=== PATIENT | female | born 1950 | race American Indian/Alaskan Native ===

== ENCOUNTER 2016-12-03 08:02 | Day surgery (SDC) | payer MEDICAID ==
[2016-12-03] MEDS ORDERED: Propofol 10 mg/ml Inj (20 ML) ONE (10:18)
[2016-12-03] MEDS ORDERED: Lactated Ringer's 500 ML IV ONE ×2 (10:37)
[2016-12-03 11:35] VITALS: TEMP 98.7; O2SAT 100
[2016-12-03 13:29] VITALS: BP 153/67; PULSE 66; RESP 14
== END 2016-12-03 13:00 | disposition home or self-care (01) ==
LOC: C.ENDO 08:02
PROVIDERS: ATTEND Internal Medicine Gastroenterology
DX: Z12.11 Encounter for screening for malignant neoplasm of colon (principal); D12.3 Benign neoplasm of transverse colon; K64.0 First degree hemorrhoids; F17.210 Nicotine dependence, cigarettes, uncomplicated
CPT/HCPCS: 45378; 82948; 88305; J2704; J7120

== ENCOUNTER 2017-11-25 10:28 | Inpatient (IN) | payer MEDICARE, MEDICAID ==
[2017-11-25] MEDS ORDERED: Piperacillin/Tazobact 3.375 gm 100 ML IV STA (11:18)
--- NOTE | 2017-11-25 11:25 | C.PDOC ---
History Of Present Illness 67 y/o female with history of HTN and DM presents to ED sent by Dr. Kc for evaluation and possible medical admission for Osteomyelitis on right foot. Patient has been on outpatient antibiotics with no improvement and denies fever , chills, numbness to foot, weakness or any other complaints at this time. Time Seen by Provider: 11/25/17 10:56 Chief Complaint (Nursing): Lower Extremity Problem/Injury History Per: Patient History/Exam Limitations: no limitations Onset/Duration Of Symptoms: Days Current Symptoms Are (Timing): Still Present Severity: Mild Past Medical History Reviewed: Historical Data, Nursing Documentation, Vital Signs Vital Signs: Last Vital Signs Temp 98.2 F 11/25/17 10:47 Pulse 60 11/25/17 12:43 Resp 22 11/25/17 12:43 BP 138/67 11/25/17 12:43 Pulse Ox 99 11/25/17 12:43 - Medical History PMH: Anxiety, Asthma, Depression, Hypercholesterolemia, Rheumatoid Arthritis Surgical History: Cholecystectomy, Endoscopy Family History: States: No Known Family Hx - Social History Hx Alcohol Use: No Hx Substance Use: No Review Of Systems Constitutional: Negative for: Fever, Chills Cardiovascular: Negative for: Chest Pain Respiratory: Negative for: Shortness of Breath Skin: Positive for: Other (infection right foot). Negative for: Rash Neurological: Negative for: Weakness, Numbness Physical Exam - Physical Exam Appears: Non-toxic, No Acute Distress Skin: Warm, Dry Head: Atraumatic, Normacephalic Eye(s): bilateral: Normal Inspection Oral Mucosa: Moist Cardiovascular: Rhythm Regular Respiratory: Normal Breath Sounds, No Rales, No Rhonchi, No Wheezing Gastrointestinal/Abdominal: Soft, No Tenderness, No Guarding, No Rebound Extremity: No Pedal Edema, Capillary Refill (<2 seconds), Other (right foot dressing in place) Pulses: Right Dorsalis Pedis: Normal Neurological/Psych: Oriented x3, Normal Speech, Normal Cognition, Normal Motor, Normal Sensation Gait: With Assistance ED Course And Treatment - Laboratory Results Result Diagrams: 11/25/17 11:34 11/25/17 11:34 O2 Sat by Pulse Oximetry: 97 (RA) Pulse Ox Interpretation: Normal Progress Note: Case discussed with Podiatry resident and request admission. Treated with IVF NSS, vancomycin and zosyn Reassessment Condition: Unchanged - Physician Consult Information Physician Contacted: Jeferson Puri Outcome Of Conversation: admit Disposition Discussed With : Jeferson Puri Doctor Will See Patient In The: Hospital - Disposition Disposition: HOSPITALIZED Disposition Time: 14:00 Condition: STABLE - POA Present On Arrival: None - Clinical Impression Clinical Impression: Acute osteomyelitis - PA / NIPPLE THREADER / Resident Statement MD/DO has reviewed & agrees with the documentation as recorded. - Scribe Statement The provider has reviewed the documentation as recorded by the Scribe Lizandro Friedman All medical record entries made by the Carmencitaibpalak were at my direction and personally dictated by me. I have reviewed the chart and agree that the record accurately reflects my personal performance of the history, physical exam, medical decision making, and the department course for this patient. I have also personally directed, reviewed, and agree with the discharge instructions and disposition. Decision To Admit - Pt Status Changed To: Hospital Disposition Of: Inpatient - Admit Certification Admit to Inpatient:: After my assessment, the patient will require hospitalization for at least two midnights. This is because of the severity of symptoms shown, intensity of services needed, and/or the medical risk in this patient being treated as an outpatient. - InPatient: Physician Admission Certification: I certify that this patient requires 2 or more midnights of care for the following reason:: Diabetic foot. cellulitis. Osteomylitis - . Bed Request Type: Regular Admitting Physician: Jeferson Puri Patient Diagnosis: Acute osteomyelitis
[2017-11-25] MEDS ORDERED: Vancomycin 1 GM 1 GM/250 ML BAG IV SCH (11:30)
[2017-11-25 11:39] LABS: BASO # 0.1 K/uL (0.0-0.2); BASO % 1.2 % (0.0-2.0); EOS # 0.2 K/uL (0.0-0.7); EOS % 3.8 % (0.0-4.0); HEMOGLOBIN 11.9 g/dL (11.0-16.0); LYMPH # 2.2 K/uL (1.0-4.3); LYMPH % 38.6 % (20.0-40.0); MEAN CELL VOLUME 83.3 fL (81.0-99.0); MEAN CORPUSCULAR HGB CONC 33.6 g/dL (33.0-37.0); MEAN PLATELET VOLUME 8.7 fL (7.2-11.7); MONO # 0.7 K/uL (0.0-0.8); MONO % 11.7 % (0.0-10.0); NEUT # 2.5 K/uL (1.8-7.0); NEUT % 44.7 % (50.0-75.0); NRBC % 0.2 % (0.0-2.0); RBC 4.26 Mil/uL (3.80-5.20); RED CELL DISTRIBUTION WIDTH 14.6 % (11.5-14.5); WHITE BLOOD COUNT 5.6 K/uL (4.8-10.8)
[2017-11-25 11:53] LABS: ALB/GLOB RATIO 1.2 (1.0-2.1); ALBUMIN 3.7 g/dL (3.5-5.0); ALT/SGPT 28 U/L (9-52); AST/SGOT 20 U/L (14-36); BLOOD UREA NITROGEN 15 mg/dL (7-17); CALCIUM 9.4 mg/dl (8.6-10.4); GFR NON-AFRICAN AMERICAN > 60
[2017-11-25] MEDS ORDERED: Piperacillin/Tazobact 3.375 gm 100 ML IVPB ONE (12:22)
--- NOTE | 2017-11-25 12:22 | CP.PCM.CON ---
History of Present Illness - History of Present Illness History of Present Illness: Podiatry Consult Note- Dr. Abbott 67 y.o F with PMHx of DM, HTN, and asthma seen and evaluated at bedside for right foot ulcerations with osteomyelitis. Patient was seen by Dr. Abbott in office with worsening drainage Thursday and was instructed to go to the ED for further evaluation. Patient reports she has had the ulceration at the forefoot since June 2017 from a nail puncture wound that went through her shoe and into her foot. Patient reports that she is a diabetic and can not feel sensation. Did not know when she stepped on the nail. The nail was removed and cleansed. The ulceration never closed up and has neil going to Dr. Abbott for continued care. Patient reports in the last few days there is increase drainage to the site. Reports has taken antibiotics. Does not know if the abx is helping. Reports mild pain to the right foot. Patient also reports that 2 weeks ago she stepped on a glass at the heel which was removed and cleansed. Reports that the ulceration appears the same. Denies any nausea, fever, shortness of breath, chest pains or chills. Reports numbness and tingling. 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, denies drinking alcohol Past Patient History - Past Medical History & Family History Past Medical History?: Yes - Past Social History Smoking Status: Current Some Days Smoker - CARDIAC Hx Hypercholesterolemia: Yes - PULMONARY Hx Asthma: Yes - HEENT Hx HEENT Problems: No - RENAL Hx Chronic Kidney Disease: No - ENDOCRINE/METABOLIC Hx Endocrine Disorders: Yes Hx Diabetes Mellitus Type 2: Yes - HEMATOLOGICAL/ONCOLOGICAL Hx Blood Disorders: No - INTEGUMENTARY Hx Dermatological Problems: No - MUSCULOSKELETAL/RHEUMATOLOGICAL Hx Rheumatoid Arthritis: Yes - GENITOURINARY/GYNECOLOGICAL Hx Genitourinary Disorders: No - PSYCHIATRIC Hx Anxiety: Yes Hx Depression: Yes Hx Substance Use: No - SURGICAL HISTORY Hx Cholecystectomy: Yes - ANESTHESIA Hx Anesthesia: Yes Hx Anesthesia Reactions: No Hx Malignant Hyperthermia: No Meds Allergies/Adverse Reactions: Allergies Allergy/AdvReac Type Severity Reaction Status Date / Time No Known Allergies Allergy Verified 12/03/16 08:43 - Medications Medications: Current Medications Vancomycin HCl (Vancomycin 1gm In Normal Saline Addvantage) 1 gm in 250 mls @ 166.667 mls/hr IV STAT ADAN PRN Reason: Protocol Physical Exam - Constitutional Appears: Well, Non-toxic, No Acute Distress - Extremities Exam Extremities exam: Negative for: calf tenderness Additional comments: VASC: DP 1/4 bilaterally, PT nonpalpable, CFT slightly delayed x 10 digits, temperature gradient right lower extremity is warm to warm, left lower extremity is warm to cool ORTHO: no pain with palpation the the ulceration sites NEURO: gross sensation diminished, protective sensation completely absent DERM: two ulcerations noted to the right foot, at sub metatarsal 1 and posterior heel Sub metatarsal 1 ulceration measures approximately . 6 x .6 x .2 cm with margins intact and hyperkeratotic, mild drainage noted, mild erythema, no streaking, undermining noted entire peripheral, no tunneling, no abscess or fluctance Posterior heel ulceration measures approximately 1 cm x .5 cm x .2 cm with wound base mixture of granular and fibroic. Wound edges intact, mild drainage, no erythema, no streaking, no undermining, no tunneling, no abscess or fluctance , no odor Increase warmth to the right foot compared to the left - Psychiatric Exam Psychiatric exam: Normal Affect, Normal Mood Results - Vital Signs Recent Vital Signs: Last Vital Signs Temp 98.2 F 11/25/17 10:47 Pulse 80 11/25/17 10:47 Resp 18 11/25/17 10:47 BP 138/79 11/25/17 10:47 Pulse Ox 97 11/25/17 12:03 - Labs Result Diagrams: 11/25/17 11:34 11/25/17 11:34 Labs: Laboratory Results - last 24 hr 11/25/17 11/25/17 11/25/17 11:34 11:34 11:34 WBC 5.6 RBC 4.26 Hgb 11.9 Hct 35.5 MCV 83.3 MCH 28.0 MCHC 33.6 RDW 14.6 H Plt Count 240 MPV 8.7 Neut % (Auto) 44.7 L Lymph % (Auto) 38.6 [place] % (Auto) 11.7 H Eos % (Auto) 3.8 Baso % (Auto) 1.2 Neut # (Auto) 2.5 Lymph # (Auto) 2.2 [place] # (Auto) 0.7 Eos # (Auto) 0.2 Baso # (Auto) 0.1 Sodium 142 Potassium 3.7 Chloride 103 Carbon Dioxide 30 Anion Gap 13 BUN 15 Creatinine 0.9 Est GFR ( Amer) > 60 Est GFR (Non-Af Amer) > 60 Random Glucose 204 H Lactic Acid 1.4 Calcium 9.4 Total Bilirubin 0.4 AST 20 ALT 28 Alkaline Phosphatase 154 H Total Protein 6.9 Albumin 3.7 Globulin 3.2 Albumin/Globulin Ratio 1.2 Assessment & Plan - Assessment and Plan (Free Text) Assessment: 67 y.o F with PMHx of DM, HTN, and asthma with nonhealing ulceration right foot with OM Plan: Patient seen and evaluated Discussed plan with Dr. Abbott X-rays reviewed Clinical OM of right foot Dr. Abbott plans to bring the patient to the OR for a debridement of nonviable soft tissue and possible resection of bone for 10am pending medical clearance Please keep patient NPO after midnight today pending medical clearance Please provide medical clearance- thank you Cleansed ulceration with saline solution Wound culture taken sub met 1 right foot-pending Wound culture taken plantar heel right foot- pending Dressed with hydrogen peroxide w2d, dsd, and kerlix
[2017-11-25 12:44] LABS: URINE BILIRUBIN NEGATIVE (NEGATIVE); URINE BLOOD NEGATIVE (NEGATIVE); URINE CLARITY Clear (Clear); URINE COLOR YELLOW (YELLOW); URINE GLUCOSE (UA) NEGATIVE (Normal); URINE LEUKOCYTE ESTERASE NEGATIVE Leu/uL (Negative); URINE PROTEIN NEGATIVE (NEGATIVE); URINE UROBILINOGEN 0.2 mg/dL (0.2-1.0)
[2017-11-25] MEDS ORDERED: Albuterol HFA 90 mcg/actuation (8 g) IH PRN (14:04)
--- NOTE | 2017-11-25 14:14 | CP.PCM.PN ---
Subjective - Date & Time of Evaluation Date of Evaluation: 11/25/17 Time of Evaluation: 14:14 - Subjective Subjective: PGY2 Medicine Note for Dr. Puri Patient is a 67 year old female with a past medical history of DM, HTN and asthma was sent to the hospital by her Law Writer, Dr. Abbott, due to non- healing osteomyelitis of the right foot. Patient has been follow up with Dr. Abbott since June 2017 after she stepped on a nail. She was diagnosed with osteomyelitis and attempted treatment twice with abx regiments for 6 weeks. The wounds are not healing and patient is being admitted for further evaluation and treatment. She has mild pain in the right foot at this time. She has no other complaints at this time. Patient has baseline neuropathy in both legs due to her history of long standing diabetes. Denies fevers, chills, nausea, vomiting, diarrhea, constipation, chest pain, shortness of breath, abdominal pain, vision changes or headaches. PMH: DM, HTN and asthma PSH: right foot bunionectomy, 2nd digit surgery, 2 knee replacements, partial hysterectomy ALL: NKDA Family: mother and father: DM, HTN Social: reports daily heroin user (3 bags per days), 5 cigarettes per day for 42 years, denies drinking alcohol Objective - Vital Signs/Intake and Output Vital Signs (last 24 hours): Temp Pulse Resp BP Pulse Ox 98.2 F 60 22 138/67 99 11/25/17 10:47 11/25/17 12:43 11/25/17 12:43 11/25/17 12:43 11/25/17 12:43 - Medications Medications: Current Medications Albuterol (Ventolin Hfa 90 Mcg/Actuation (8 G)) 1 puff IH Q4H PRN PRN Reason: Wheezing Gabapentin (Neurontin) 300 mg PO TID ADAN Glipizide (Glucotrol) 5 mg PO DAILY ADAN Vancomycin HCl (Vancomycin 1gm In Normal Saline Addvantage) 1 gm in 250 mls @ 166.667 mls/hr IV STAT ADAN PRN Reason: Protocol Insulin Detemir (Levemir) 15 unit SC HS ADAN Lisinopril (Zestril) 20 mg PO DAILY ADAN Fluticasone/Salmeterol (Advair Diskus 250/50) 1 puff INH Q12H ADAN - Labs Labs: 11/25/17 11:34 11/25/17 11:34 - Constitutional Appears: Chronically Ill, Other (obese) - Head Exam Head Exam: ATRAUMATIC, NORMOCEPHALIC - Eye Exam Eye Exam: EOMI, Normal appearance, PERRL. absent: Scleral icterus - ENT Exam ENT Exam: Mucous Membranes Moist - Neck Exam Neck Exam: absent: Lymphadenopathy - Respiratory Exam Respiratory Exam: Clear to Ausculation Bilateral, NORMAL BREATHING PATTERN. absent: Accessory Muscle Use, Rales, Rhonchi, Wheezes, Respiratory Distress - Cardiovascular Exam Cardiovascular Exam: REGULAR RHYTHM, +S1 - GI/Abdominal Exam GI & Abdominal Exam: Soft. absent: Distended, Firm, Guarding, Rigid, Tenderness - Extremities Exam Extremities Exam: Pedal Edema (3+ pitting above knee b/l). absent: Calf Tenderness, Normal Inspection Additional comments: ankles wrapped b/l chronic skin changes b/l - dark, dusky skin appearance - Neurological Exam Neurological Exam: Alert, Awake, Oriented x3 - Psychiatric Exam Psychiatric exam: Normal Affect, Normal Mood - Skin Skin Exam: Dry, Warm Assessment and Plan - Assessment and Plan (Free Text) Plan: R foot Osteomyelitis Podiatry consulted, Dr. Abbott * patient scheduled for OR in the morning * Patient is medically optimized for surgery per Dr. Puri CXR 11/25: no acute disease Foot X-ray 11/25: * No plain radiographic evidence of osteomyelitis. 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 * Soft tissue swelling about 1st metatarsal phalangeal joint. * Consider inflammatory, gouty or infectious arthritis. afebrile normal WBC Lactic Acid 1.4 UA normal ED course: 1 dose of Vanco 1gm and Zosyn 3.375gm IVPB given. Diabetes Accuchecks ISS - High Restarted home medications: * Levemir 15 units SC HS * Glipizide 5mg PO daily * Gabapentin 300mg PO TID Hypertension continue to monitor Restarted home medications: * Lisinopril 20mg PO daily Hx of Asthma Restarted home medications: * Advair Diskus 250/50 1puff INH q12h * Albuterol 1 puff INH q4h prn - SOB Prophylactic Care DVT: AC contraindicated due to pre-op SCDs contraindicated due to LE edema Patient has been medically optimized for surgery per Dr. Puri by previous work -up. All medical management per Dr. Puri.
[2017-11-25] MEDS ORDERED: Fluticasone-Salmeterol 250-50mcg Diskus INH SCH (14:15)
--- NOTE | 2017-11-25 14:47 | RAD ---
Date of service: 11/25/2017 PROCEDURE: Right Foot Radiographs. HISTORY: cellulitis COMPARISON: None. FINDINGS: BONES: No acute fracture. 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 Severe arthritis at the 1st metatarsal phalangeal articulation with large osseous erosions. Differential diagnosis includes infectious arthritis, inflammatory arthritis, gouty arthritis. Remaining joint spaces and articular surfaces are intact. No periosteal reaction. JOINTS: As above SOFT TISSUES: Soft tissue swelling seen about the 1st digit. OTHER FINDINGS: None. IMPRESSION: No plain radiographic evidence of osteomyelitis. The erosive arthritis of 1st metatarsophalangeal joint. Soft tissue swelling about 1st metatarsal phalangeal joint. Consider inflammatory, gouty or infectious arthritis.
[2017-11-25] MEDS ORDERED: Dextrose 50% SYRINGE Inj (50 ml) IV PRN (17:09)
[2017-11-25] MEDS ORDERED: Glucagon Recombinant 1 mg Inj IM PRN (17:09)
[2017-11-25] MEDS: (Novolin R) Insulin Human Regular 100 units/ml vial SC SCH (21:48)
[2017-11-25] MEDS: Insulin Detemir 100 units/ml Vial (Levemir) SC SCH (21:49)
--- NOTE | 2017-11-26 06:40 | HP ---
Copied To: Jeferson Puri MD Attending MD: Jeferson Puri MD HISTORY OF PRESENT ILLNESS: This is a 67-year-old female with history of diabetes, hypertension, diabetic foot infection. Chief complaint pain and swelling in the right foot. The patient is followed by a gang drill operator at a different hospital. PHYSICAL EXAMINATION GENERAL: The patient is awake, alert, and oriented. VITAL SIGNS: Temperature 98, pulse 90. HEENT: Within normal limits. NECK: Supple. LUNGS: Symmetrical. HEART: Regular. ABDOMEN: Soft. EXTREMITIES: dressing extremity. IMPRESSION AND PLAN: The patient suffers from diabetic foot, also has osteomyelitis. The patient to get intravenous antibiotics, Infectious Disease consult. Jeferson Puri MD
[2017-11-26] MEDS: (Novolin R) Insulin Human Regular 100 units/ml vial SC SCH ×4 (08:00→21:41)
[2017-11-26 08:17] LABS: BASO # 0.1 K/uL (0.0-0.2); BASO % 0.9 % (0.0-2.0); EOS # 0.2 K/uL (0.0-0.7); EOS % 3.3 % (0.0-4.0); LYMPH # 2.3 K/uL (1.0-4.3); LYMPH % 40.3 % (20.0-40.0); MEAN CELL VOLUME 82.8 fL (81.0-99.0); MEAN CORPUSCULAR HEMOGLOBIN 27.8 pg (27.0-31.0); MEAN CORPUSCULAR HGB CONC 33.5 g/dL (33.0-37.0); MEAN PLATELET VOLUME 8.5 fL (7.2-11.7); MONO # 0.6 K/uL (0.0-0.8); MONO % 11.1 % (0.0-10.0); NEUT # 2.5 K/uL (1.8-7.0); NEUT % 44.4 % (50.0-75.0); NRBC % 0.1 % (0.0-2.0); RBC 3.98 Mil/uL (3.80-5.20); RED CELL DISTRIBUTION WIDTH 14.3 % (11.5-14.5); WHITE BLOOD COUNT 5.6 K/uL (4.8-10.8)
[2017-11-26 08:29] LABS: ALB/GLOB RATIO 1.1 (1.0-2.1); ALBUMIN 3.2 g/dL (3.5-5.0); ALT/SGPT 29 U/L (9-52); AST/SGOT 28 U/L (14-36); BLOOD UREA NITROGEN 19 mg/dL (7-17); CALCIUM 8.8 mg/dl (8.6-10.4); GFR NON-AFRICAN AMERICAN > 60
[2017-11-26] MEDS ORDERED: Bupivacaine 0.25% 20 ML INJ IJ ONE (09:33)
[2017-11-26] MEDS ORDERED: Lidocaine 2% MPF (5 ml) Inj ONE (09:33)
[2017-11-26] MEDS ORDERED: Propofol 10 mg/ml Inj (20 ML) ONE ×3 (09:53→10:44)
[2017-11-26] MEDS ORDERED: Midazolam 2 MG/2 ML VIAL ONE (09:53)
[2017-11-26] MEDS: Fluticasone-Salmeterol 250-50mcg Diskus INH SCH ×2 (10:19→19:26)
[2017-11-26] MEDS ORDERED: Lactated Ringer's 1,000 ML IV ONE (11:12)
[2017-11-26] MEDS: HYDROmorphone 0.5 mg/0.5 ml ISec IVP PRN ×2 (11:16→12:10)
--- NOTE | 2017-11-26 11:52 | PCM.SURG1 ---
Surgeon's Initial Post Op Note - Surgeon's Notes Surgeon: Dr. San Physician Non Invasive Cardiologist: Dr. Gabriella Marshall, PGY1, Dr. Bear Chauhan PGY1 Type of Anesthesia: IV Sedation, Local Pre-Operative Diagnosis: Chronic osteomyelitis of right first ray Operative Findings: See dictation. I: 20 cc of 1:1 mix of 1% lidocaine plain and 0.5% marcaine plain. M: 2-0 chromic gut, 1/4 iodoform packing, 1/4 umm drain Post-Operative Diagnosis: same Operation Performed: Radical excision of nonviable bone and soft tissue from right foot Specimen/Specimens Removed: non-viable bone and soft tissue Estimated Blood Loss: EBL {In ML}: 40 Blood Products Given: N/A Drains Used: Umm Post-Op Condition: Good Date of Surgery/Procedure: 11/26/17 Time of Surgery/Procedure: 12:21
[2017-11-26] MEDS ORDERED: HYDROmorphone 0.5 mg/0.5 ml ISec ONE (12:14)
--- NOTE | 2017-11-26 12:38 | RAD ---
Date of service: 11/26/2017 PROCEDURE: Right Foot Radiographs. HISTORY: s/p foot surgery COMPARISON: 11/25/2017 FINDINGS: BONES: Interval partial resection of the 1st distal a tarsal head and 1st proximal phalanx have occurred since the prior exam [place] overlying radiopaque tape here for which clinical correlation advised. The prior postop changes of the 2nd metatarsal distal partial resection is unchanged. Hallux valgus, hammertoes and clinodactyly status renoted. Extensive subcutaneous circumferential edema lower leg entire foot noted. No gas-forming cellulitis appreciated. JOINTS: Mid tarsal arthropathic changes. SOFT TISSUES: Swelling as above with overlying bandaging OTHER FINDINGS: None. IMPRESSION: Status post interval surgical changes 1st digit as above.
--- NOTE | 2017-11-26 13:07 | CP.PCM.PN ---
Subjective - Date & Time of Evaluation Date of Evaluation: 11/26/17 Time of Evaluation: 08:35 - Subjective Subjective: PGY2 Medicine Note for Dr. Puri Patient seen and examined this morning at bedside. No acute events overnight. Patient is resting comfortably in bed, stating that her pain has been well controlled. She is currently NPO and scheduled for surgery this afternoon. She has no complaints at this time. Objective - Vital Signs/Intake and Output Vital Signs (last 24 hours): Temp Pulse Resp BP Pulse Ox 98.2 F 65 20 156/87 H 97 11/26/17 08:14 11/26/17 08:14 11/26/17 08:14 11/26/17 08:14 11/26/17 08:14 Intake and Output: 11/26/17 11/26/17 06:59 18:59 Intake Total 0 1000 Balance 0 1000 - Medications Medications: Current Medications Acetaminophen (Tylenol 325mg Tab) 650 mg PO Q6 PRN PRN Reason: Pain, Mild (1-3) Albuterol (Ventolin Hfa 90 Mcg/Actuation (8 G)) 1 puff IH Q4H PRN PRN Reason: Wheezing Dextrose (Dextrose 50% Inj) 0 ml IV STAT PRN; Protocol PRN Reason: Hypoglycemia Protocol Dextrose (Glutose 15) 0 gm PO ONCE PRN; Protocol PRN Reason: Hypoglycemia Protocol Gabapentin (Neurontin) 300 mg PO TID [facility] Last Admin: 11/26/17 09:47 Dose: Not Given Glipizide (Glucotrol) 5 mg PO DAILY [facility] Last Admin: 11/26/17 09:48 Dose: Not Given Glucagon (Glucagen Diagnostic Kit) 0 mg IM STAT PRN; Protocol PRN Reason: Hypoglycemia Protocol Hydromorphone HCl (Dilaudid) 0.5 mg IVP Q10M PRN PRN Reason: Pain, moderate (4-7) Stop: 11/26/17 13:11 Last Admin: 11/26/17 12:10 Dose: 0.5 mg Dextrose (Dextrose 5% In Water 1000 Ml) 1,000 mls @ 0 mls/hr IV .Q0M PRN; Protocol; Per Protocol PRN Reason: Hypoglycemia Protocol Insulin Detemir (Levemir) 15 unit SC HS [facility] Last Admin: 11/25/17 21:49 Dose: 15 units Insulin Human Regular (Novolin R) 0 unit SC ACHS ADAN PRN Reason: Protocol Last Admin: 11/26/17 12:20 Dose: 4 unit Lisinopril (Zestril) 20 mg PO DAILY [facility] Last Admin: 11/26/17 09:22 Dose: 20 mg Oxycodone/Acetaminophen (Percocet 5/325 Mg Tab) 1 tab PO Q4H PRN PRN Reason: Pain, moderate (4-7) Stop: 11/29/17 11:13 Oxycodone/Acetaminophen (Percocet 5/325 Mg Tab) 2 tab PO Q4H PRN PRN Reason: Pain, severe (8-10) Stop: 11/29/17 11:13 Fluticasone/Salmeterol (Advair Diskus 250/50) 1 puff INH RQ12 [facility] Last Admin: 11/26/17 10:19 Dose: Not Given - Labs Labs: 11/26/17 08:03 11/26/17 08:03 PT 11.0 SECONDS (9.7-12.2) 11/26/17 08:03 INR 1.0 11/26/17 08:03 APTT 32 SECONDS (21-34) 11/26/17 08:03 - Constitutional Appears: No Acute Distress, Chronically Ill (obese) - Head Exam Head Exam: ATRAUMATIC, NORMOCEPHALIC - Eye Exam Eye Exam: EOMI, Normal appearance. absent: Scleral icterus - ENT Exam ENT Exam: Mucous Membranes Moist - Neck Exam Neck Exam: absent: Lymphadenopathy - Respiratory Exam Respiratory Exam: Clear to Ausculation Bilateral, NORMAL BREATHING PATTERN. absent: Accessory Muscle Use, Rales, Rhonchi, Wheezes, Respiratory Distress - Cardiovascular Exam Cardiovascular Exam: REGULAR RHYTHM, +S1, +S2 - GI/Abdominal Exam GI & Abdominal Exam: Soft. absent: Distended, Firm, Guarding, Rigid, Tenderness - Extremities Exam Extremities Exam: Pedal Edema (3+). absent: Calf Tenderness Additional comments: dark, dusky skin appearance - chronic skin changes b/l right ankle wrapped toe nails discolored and thickened - Neurological Exam Neurological Exam: Alert, Awake, Oriented x3 - Psychiatric Exam Psychiatric exam: Normal Affect, Normal Mood - Skin Skin Exam: Dry, Warm Assessment and Plan - Assessment and Plan (Free Text) Plan: R foot Osteomyelitis Podiatry consulted, Dr. Abbott * Patient scheduled for OR this morning * f/u Podiatry recs CXR 11/25: no acute disease Foot X-ray 11/25: * No plain radiographic evidence of osteomyelitis. 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 * Soft tissue swelling about 1st metatarsal phalangeal joint. * Consider inflammatory, gouty or infectious arthritis. afebrile normal WBC Lactic Acid 1.4 UA normal Wound cultures pending x2 Blood cultures pending Medications: * Percocet 1 tab PO q4h prn * Percocet 2 tab PO q4h prn * Tylenol 650mg PO q6h prn Diabetes Accuchecks ISS - High Restarted home medications: * Levemir 15 units SC HS * Glipizide 5mg PO daily * Gabapentin 300mg PO TID Hypertension continue to monitor Restarted home medications: * Lisinopril 20mg PO daily Hx of Asthma Restarted home medications: * Advair Diskus 250/50 1puff INH q12h * Albuterol 1 puff INH q4h prn - SOB Heroin Abuse Psych consulted, Dr. Almanza * Management per Psych Monitor for signs/symptoms of opioid withdrawal Prophylactic Care DVT: AC contraindicated due to pre-op SCDs contraindicated due to LE edema Patient has been medically optimized for surgery per Dr. Puri by previous work -up. All medical management per Dr. Puri.
--- NOTE | 2017-11-26 13:39 | PCM.PSYCH ---
Initial Psychiatric Evaluation - Initial Psychiatric Evaluation Type of Admission: Voluntary Legal Status: Capacity Chief Complaint (in patient's own words): "Not well" History of Present Illness and Precipitating Events: She is seen, chart reviewed, case discussed Consult was requested for her depressive sxs She is a 67 y/o AAF, with 4 children, retired She is here for osteomyelitis She reports that she had been dx'ed w depression and anxiety before and that she was given Paxil 10 mg and Abilify 10 mg She is not sure why she got Abilify - no martha, psychosis or treatment- resistant dep reported Currently she reports dep sxs but denies SI No drugs, alcohol Past psych hx: No admissions Medicl Hx: asthma and DM family psych hx: son has schiz. and daughter also has signif. psych illness Current Medications: Active Medications Generic Name Dose Route Start Last Admin Trade Name Freq PRN Reason Stop Dose Admin Acetaminophen 650 mg 11/26/17 11:12 Tylenol 325mg Tab PO Q6 PRN Pain, Mild (1-3) Albuterol 1 puff 11/25/17 14:04 Ventolin Hfa 90 Mcg/Actuation (8 G) IH Q4H PRN Wheezing Dextrose 0 ml 11/25/17 17:09 Dextrose 50% Inj IV STAT PRN Hypoglycemia Protocol Protocol Dextrose 0 gm 11/25/17 17:09 Glutose 15 PO ONCE PRN Hypoglycemia Protocol Protocol Gabapentin 300 mg 11/25/17 18:00 11/26/17 13:06 Neurontin PO 300 mg TID ADAN Administration Glipizide 5 mg 11/26/17 10:00 11/26/17 09:48 Glucotrol PO Not Given DAILY ADAN Glucagon 0 mg 11/25/17 17:09 Glucagen Diagnostic Kit IM STAT PRN Hypoglycemia Protocol Protocol Dextrose 1,000 mls @ 0 mls/hr 11/25/17 17:09 Dextrose 5% In Water 1000 Ml IV .Q0M PRN Hypoglycemia Protocol Protocol Per Protocol Insulin Detemir 15 unit 11/25/17 22:00 11/25/17 21:49 Levemir SC 15 units HS ADAN Administration Insulin Human Regular 0 unit 11/25/17 22:00 11/26/17 12:20 Novolin R SC 4 unit ACHS ADAN Administration Protocol Lisinopril 20 mg 11/26/17 10:00 11/26/17 09:22 Zestril PO 20 mg DAILY ADAN Administration Oxycodone/Acetaminophen 1 tab 11/26/17 11:12 Percocet 5/325 Mg Tab PO 11/29/17 11:13 Q4H PRN Pain, moderate (4-7) Oxycodone/Acetaminophen 2 tab 11/26/17 11:12 Percocet 5/325 Mg Tab PO 11/29/17 11:13 Q4H PRN Pain, severe (8-10) Fluticasone/Salmeterol 1 puff 11/25/17 20:00 11/26/17 10:19 Advair Diskus 250/50 INH Not Given RQ12 ADAN Past Psychiatric History - Past Psychiatric History Previous Treatment History: Intensive Outpatient Pertinent Medical Hx (Current Medical&Sleep Prob, Allergies): Allergies Allergy/AdvReac Type Severity Reaction Status Date / Time No Known Allergies Allergy Verified 12/03/16 08:43 ARIPiprazole [Abilify] 10 mg PO DAILY 12/03/16 Albuterol HFA [Ventolin HFA 90 mcg/actuation (8 g)] 1 puff IH PRN PRN 12/03/16 Fluticasone/Salmeterol [Advair 250-50 Diskus] 250 mcg INH DAILY 12/03/16 Gabapentin [Neurontin] 300 mg PO TID 12/03/16 GlipiZIDE [Glucotrol] 5 mg PO BID 12/03/16 Insulin Glargine, Recombina [Lantus] 100 unit SC HS 12/03/16 Insulin Lispro [Humalog (Insulin Lispro)] 100 unit SQ DAILY 12/03/16 Lisinopril [Zestril] 20 mg PO DAILY 12/03/16 MetFORMIN [glucoPHAGE] 1 mg PO BID 12/03/16 PARoxetine CR [Paxil CR] 25 mg PO DAILY 12/03/16 Zolpidem [Ambien] 10 mg PO HS 12/03/16 Review of Systems - Neurological Neurological: UNREMARKABLE - Psychiatric Psychiatric: Abnormal Sleep Pattern, Anhedonia, Anxiety, Depression, Difficulty Concentrating. absent: Homicidal Ideation, Suicidal Ideation Mental Status Examination - Personal Presentation Personal Presentation: Looks stated age - Affect Affect: Constricted - Motor Activity Motor Activity: Calm - Reliability in Providing Information Reliability in Providing Information: Good - Speech Speech: Organized - Mood Mood: Depressed, Anxious - Formal Thought Process Formal Thought Process: No Impairment - Cognitive Functions Orientation: Person, Place, Situation, Time Sensorium: Alert Attention/Concentration: Attentive Estimate of Intelligence: Average Judgement: Intact, as evidence by: Insight regarding need for hospitalization Memory: Recent intact, as evidence by: Ability to recall events of the day, Remote intact, as evidenced by: Ability to recall historical events - Risk Risk: Diminished functioning - Strength & Assets Inventory Strength & Assets Inventory: Family support, Cooperative DSM 5 DX - DSM 5 DSM 5 Diagnosis: Major depressive d/o - severe, recurrent, w/o psychosis r/o JAROD - Recommended/Plan of Treatment Treatment Recommendations and Plan of Treatment: Increase Paxil to 50 mg/d Continue Abilify but 5 mg is enough Trazodone for insomnia Support and psychoed daily Psych will sign off 32 min
[2017-11-26] MEDS: Oxycodone/Acetaminophen 5/325 mg Tab PO PRN ×2 (16:15→22:12)
[2017-11-26] MEDS: Insulin Detemir 100 units/ml Vial (Levemir) SC SCH (21:40)
--- NOTE | 2017-11-27 02:12 | CARD ---
APPROVED REPORT Date of service: 11/25/2017 EKG Measurement Heart [id number] <Conclusion> Normal sinus rhythm Abnormal QRS-T angle, consider primary T wave abnormality Abnormal ECG
[2017-11-27 07:21] LABS: BASO % 0.5 % (0.0-2.0); EOS # 0.1 K/uL (0.0-0.7); EOS % 0.7 % (0.0-4.0); HEMOGLOBIN 11.7 g/dL (11.0-16.0); LYMPH # 1.1 K/uL (1.0-4.3); LYMPH % 13.8 % (20.0-40.0); MEAN CORPUSCULAR HEMOGLOBIN 28.1 pg (27.0-31.0); MEAN CORPUSCULAR HGB CONC 33.8 g/dL (33.0-37.0); MEAN PLATELET VOLUME 8.7 fL (7.2-11.7); MONO # 0.7 K/uL (0.0-0.8); MONO % 9.6 % (0.0-10.0); NEUT # 5.8 K/uL (1.8-7.0); NEUT % 75.4 % (50.0-75.0); NRBC % 0.1 % (0.0-2.0); RBC 4.17 Mil/uL (3.80-5.20); RED CELL DISTRIBUTION WIDTH 14.7 % (11.5-14.5); WHITE BLOOD COUNT 7.7 K/uL (4.8-10.8)
[2017-11-27 07:34] LABS: ALB/GLOB RATIO 1.1 (1.0-2.1); ALBUMIN 3.6 g/dL (3.5-5.0); ALT/SGPT 25 U/L (9-52); AST/SGOT 20 U/L (14-36); BLOOD UREA NITROGEN 14 mg/dL (7-17); CALCIUM 9.2 mg/dl (8.6-10.4); GFR NON-AFRICAN AMERICAN > 60
[2017-11-27] MEDS: (Novolin R) Insulin Human Regular 100 units/ml vial SC SCH ×4 (08:25→21:30)
--- NOTE | 2017-11-27 08:35 | CP.PCM.PN ---
Subjective - Date & Time of Evaluation Date of Evaluation: 11/27/17 Time of Evaluation: 07:15 - Subjective Subjective: PGY3 Medicine Note for Dr. Puri Patient seen and examined this morning at bedside. No acute events overnight. Patient is resting in bed, stating that her pain has been well controlled. She is s/p surgery with podiatry on 11/26. So does admit to persistent nausea, however denies vomiting. She is mildly tender at the site of her surgery. 12- point review of systems is otherwise negative without any additional acute complaints. Objective - Vital Signs/Intake and Output Vital Signs (last 24 hours): Temp Pulse Resp BP Pulse Ox 98.9 F 84 20 126/93 H 96 11/27/17 00:02 11/27/17 00:02 11/27/17 00:02 11/27/17 00:02 11/27/17 00:02 Intake and Output: 11/27/17 11/27/17 06:59 18:59 Intake Total 360 Balance 360 - Medications Medications: Current Medications Acetaminophen (Tylenol 325mg Tab) 650 mg PO Q6 PRN PRN Reason: Pain, Mild (1-3) Albuterol (Ventolin Hfa 90 Mcg/Actuation (8 G)) 1 puff IH Q4H PRN PRN Reason: Wheezing Aripiprazole (Abilify) 5 mg PO [facility] Last Admin: 11/26/17 21:39 Dose: 5 mg Dextrose (Dextrose 50% Inj) 0 ml IV STAT PRN; Protocol PRN Reason: Hypoglycemia Protocol Dextrose (Glutose 15) 0 gm PO ONCE PRN; Protocol PRN Reason: Hypoglycemia Protocol Gabapentin (Neurontin) 300 mg PO TID [facility] Last Admin: 11/26/17 17:26 Dose: 300 mg Glipizide (Glucotrol) 5 mg PO DAILY [facility] Last Admin: 11/26/17 09:48 Dose: Not Given Glucagon (Glucagen Diagnostic Kit) 0 mg IM STAT PRN; Protocol PRN Reason: Hypoglycemia Protocol Dextrose (Dextrose 5% In Water 1000 Ml) 1,000 mls @ 0 mls/hr IV .Q0M PRN; Protocol; Per Protocol PRN Reason: Hypoglycemia Protocol Insulin Detemir (Levemir) 15 unit SC [facility] Last Admin: 11/26/17 21:40 Dose: 15 units Insulin Human Regular (Novolin R) 0 unit SC ACHS [facility] PRN Reason: Protocol Last Admin: 11/26/17 21:41 Dose: Not Given Lisinopril (Zestril) 20 mg PO DAILY [facility] Last Admin: 11/26/17 09:22 Dose: 20 mg Oxycodone/Acetaminophen (Percocet 5/325 Mg Tab) 1 tab PO Q4H PRN PRN Reason: Pain, moderate (4-7) Stop: 11/29/17 11:13 Last Admin: 11/26/17 22:12 Dose: 1 tab Oxycodone/Acetaminophen (Percocet 5/325 Mg Tab) 2 tab PO Q4H PRN PRN Reason: Pain, severe (8-10) Stop: 11/29/17 11:13 Last Admin: 11/26/17 16:15 Dose: 2 tab Paroxetine HCl (Paxil) 20 mg PO DAILY [facility] Fluticasone/Salmeterol (Advair Diskus 250/50) 1 puff INH RQ12 [facility] Last Admin: 11/26/17 19:26 Dose: Not Given Trazodone HCl (Desyrel) 50 mg PO HS [facility] Last Admin: 11/26/17 21:39 Dose: 50 mg - Labs Labs: 11/27/17 06:53 11/27/17 06:53 PT 11.0 SECONDS (9.7-12.2) 11/26/17 08:03 INR 1.0 11/26/17 08:03 APTT 32 SECONDS (21-34) 11/26/17 08:03 - Additional Findings Additional findings: - Constitutional Appears: No Acute Distress, Chronically Ill (obese) - Head Exam Head Exam: ATRAUMATIC, NORMOCEPHALIC - Eye Exam Eye Exam: EOMI, Normal appearance. absent: Scleral icterus - ENT Exam ENT Exam: Mucous Membranes Moist - Neck Exam Neck Exam: absent: Lymphadenopathy - Respiratory Exam Respiratory Exam: Clear to Ausculation Bilateral, NORMAL BREATHING PATTERN. absent: Accessory Muscle Use, Rales, Rhonchi, Wheezes, Respiratory Distress - Cardiovascular Exam Cardiovascular Exam: REGULAR RHYTHM, +S1, +S2 - GI/Abdominal Exam GI & Abdominal Exam: Soft. absent: Distended, Firm, Guarding, Rigid, Tenderness - Extremities Exam Extremities Exam: Pedal Edema (3+). absent: Calf Tenderness Additional comments: dark, dusky skin appearance - chronic skin changes b/l right ankle wrapped toe nails discolored and thickened - Neurological Exam Neurological Exam: Alert, Awake, Oriented x3 - Psychiatric Exam Psychiatric exam: Normal Affect, Normal Mood - Skin Skin Exam: Dry, Warm Assessment and Plan - Assessment and Plan (Free Text) Assessment: R foot Osteomyelitis 11/27: ID consult, Dr. Banerjee, f/u recs WC +for G(+) cocci Podiatry consulted, Dr. Abbott * Patient scheduled for OR this morning * f/u Podiatry recs CXR 11/25: no acute disease Foot X-ray 11/25: * No plain radiographic evidence of osteomyelitis. 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 * Soft tissue swelling about 1st metatarsal phalangeal joint. * Consider inflammatory, gouty or infectious arthritis. afebrile normal WBC Lactic Acid 1.4 UA normal Wound cultures pending x2 Blood cultures pending Medications: * Percocet 1 tab PO q4h prn * Percocet 2 tab PO q4h prn * Tylenol 650mg PO q6h prn Diabetes Accuchecks ISS - High Restarted home medications: * Levemir 15 units SC HS * Glipizide 5mg PO daily * Gabapentin 300mg PO TID Hypertension continue to monitor Restarted home medications: * Lisinopril 20mg PO daily Hx of Asthma Restarted home medications: * Advair Diskus 250/50 1puff INH q12h * Albuterol 1 puff INH q4h prn - SOB Heroin Abuse Psych consulted, Dr. Almanza * Management per Psych Monitor for signs/symptoms of opioid withdrawal Nausea Start zofran 4mg IVP q6H PRN nausea Electrolyte Imbalance Hypomagnesemia, Mg 1.5 - Mag sulfate x2bags Prophylactic Care DVT: AC contraindicated due to pre-op SCDs contraindicated due to LE edema Patient has been medically optimized for surgery per Dr. Puri by previous work -up. All medical management per Dr. Puri.
[2017-11-27] MEDS: Magnesium Sulfate 1 gm in D5W 1 GM/100 ML BAG IVPB SCH ×2 (11:32→11:51)
[2017-11-27] MEDS: Piperacillin/Tazobact 3.375 GM in Sodium Chloride 100 ML IVPB SCH ×2 (15:01→21:34)
[2017-11-27] MEDS: Vancomycin 1 gm/NS 200 ml 1 GM/200 ML BAG IVPB SCH (18:00)
--- NOTE | 2017-11-27 20:14 | CP.PCM.CON ---
History of Present Illness - History of Present Illness History of Present Illness: 67 y.o F with PMHx of DM, HTN, and asthma seen and evaluated at bedside for right foot ulcerations with osteomyelitis. Patient was seen by Dr. Abbott in office with worsening drainage Thursday and was instructed to go to the ED for further evaluation. went to OR for debridement of wound and OM left foot ID consulted cultures pending PMH: DM, HTN, asthma PSH: right foot bunionectomy, 2nd digit surgery, 2 knee replacements, partial hysterectomy ALL: NKDA MEDS: see JUN list FH: mother, father- DM, HTN SH: reports daily heroin user, 4-5 cigarettes per day for 42 years, denies drinking alcohol Review of Systems - Review of Systems All systems: reviewed and no additional remarkable complaints except Past Patient History - Past Medical History & Family History Past Medical History?: Yes - Past Social History Smoking Status: Current Some Days Smoker - CARDIAC Hx Hypercholesterolemia: Yes - PULMONARY Hx Asthma: Yes - NEUROLOGICAL Hx Neurological Disorder: No - HEENT Hx HEENT Problems: No - RENAL Hx Chronic Kidney Disease: No - ENDOCRINE/METABOLIC Hx Diabetes Mellitus Type 2: Yes - HEMATOLOGICAL/ONCOLOGICAL Hx Blood Disorders: No - INTEGUMENTARY Hx Dermatological Problems: No - MUSCULOSKELETAL/RHEUMATOLOGICAL Hx Arthritis: Yes (KNEES,) Hx Rheumatoid Arthritis: Yes - GASTROINTESTINAL Hx Gastrointestinal Disorders: No - GENITOURINARY/GYNECOLOGICAL Hx Genitourinary Disorders: No - PSYCHIATRIC Hx Anxiety: Yes Hx Depression: Yes Hx Substance Use: No - SURGICAL HISTORY Hx Cholecystectomy: Yes - ANESTHESIA Hx Anesthesia: Yes Hx Anesthesia Reactions: No Hx Malignant Hyperthermia: No Meds Allergies/Adverse Reactions: Allergies Allergy/AdvReac Type Severity Reaction Status Date / Time No Known Allergies Allergy Verified 12/03/16 08:43 - Medications Medications: Current Medications Acetaminophen (Tylenol 325mg Tab) 650 mg PO Q6 PRN PRN Reason: Pain, Mild (1-3) Last Admin: 11/27/17 17:20 Dose: 650 mg Albuterol (Ventolin Hfa 90 Mcg/Actuation (8 G)) 1 puff IH Q4H PRN PRN Reason: Wheezing Aripiprazole (Abilify) 5 mg PO HS ADAN Last Admin: 11/26/17 21:39 Dose: 5 mg Dextrose (Dextrose 50% Inj) 0 ml IV STAT PRN; Protocol PRN Reason: Hypoglycemia Protocol Dextrose (Glutose 15) 0 gm PO ONCE PRN; Protocol PRN Reason: Hypoglycemia Protocol Gabapentin (Neurontin) 300 mg PO TID [facility] Last Admin: 11/27/17 17:25 Dose: 300 mg Glipizide (Glucotrol) 5 mg PO DAILY [facility] Last Admin: 11/27/17 11:49 Dose: 5 mg Glucagon (Glucagen Diagnostic Kit) 0 mg IM STAT PRN; Protocol PRN Reason: Hypoglycemia Protocol Dextrose (Dextrose 5% In Water 1000 Ml) 1,000 mls @ 0 mls/hr IV .Q0M PRN; Protocol; Per Protocol PRN Reason: Hypoglycemia Protocol Piperacillin Sod/Tazobactam (Sod 3.375 gm/ Sodium Chloride) 100 mls @ 200 mls/ hr IVPB Q8H [facility] PRN Reason: Protocol Last Admin: 11/27/17 15:01 Dose: 200 mls/hr Vancomycin/Sodium Chloride (Vancomycin 1 Gm/Ns 200 Ml) 1 gm in 200 mls @ 133 mls/hr IVPB Q12H [facility] PRN Reason: Protocol Stop: 12/02/17 18:01 Insulin Detemir (Levemir) 15 unit SC HS [facility] Last Admin: 11/26/17 21:40 Dose: 15 units Insulin Human Regular (Novolin R) 0 unit SC [facility] PRN Reason: Protocol Last Admin: 11/27/17 16:30 Dose: 4 unit Lisinopril (Zestril) 20 mg PO DAILY [facility] Last Admin: 11/27/17 09:50 Dose: 20 mg Ondansetron HCl (Zofran Inj) 4 mg IVP Q6H PRN PRN Reason: Nausea/Vomiting Last Admin: 11/27/17 13:50 Dose: 4 mg Oxycodone/Acetaminophen (Percocet 5/325 Mg Tab) 1 tab PO Q4H PRN PRN Reason: Pain, moderate (4-7) Stop: 11/29/17 11:13 Last Admin: 11/26/17 22:12 Dose: 1 tab Oxycodone/Acetaminophen (Percocet 5/325 Mg Tab) 2 tab PO Q4H PRN PRN Reason: Pain, severe (8-10) Stop: 11/29/17 11:13 Last Admin: 11/26/17 16:15 Dose: 2 tab Paroxetine HCl (Paxil) 20 mg PO DAILY [facility] Last Admin: 11/27/17 09:50 Dose: 20 mg Fluticasone/Salmeterol (Advair Diskus 250/50) 1 puff INH RQ12 [facility] Last Admin: 11/26/17 19:26 Dose: Not Given Trazodone HCl (Desyrel) 50 mg PO HS [facility] Last Admin: 11/26/17 21:39 Dose: 50 mg Physical Exam - Constitutional Appears: Chronically Ill - Head Exam Head Exam: NORMAL INSPECTION - Eye Exam Eye Exam: PERRL - ENT Exam ENT Exam: Mucous Membranes Dry - Neck Exam Neck exam: Negative for: Lymphadenopathy - Respiratory Exam Respiratory Exam: Decreased Breath Sounds - Cardiovascular Exam Cardiovascular Exam: REGULAR RHYTHM - GI/Abdominal Exam GI & Abdominal Exam: Diminished Bowel Sounds - Rectal Exam Rectal Exam: Deferred - Exam Exam: NORMAL INSPECTION - Extremities Exam Extremities exam: Positive for: pedal edema, tenderness, pedal pulses present. Negative for: calf tenderness - Back Exam Back exam: absent: CVA tenderness (L), CVA tenderness (R) - Neurological Exam Neurological exam: Alert, CN II-XII Intact, Oriented x3, Reflexes Normal - Psychiatric Exam Psychiatric exam: Depressed - Skin Skin Exam: Dry Results - Vital Signs Recent Vital Signs: Last Vital Signs Temp 101.6 F H 11/27/17 17:20 Pulse 98 H 11/27/17 16:55 Resp 20 11/27/17 16:55 BP 111/86 11/27/17 16:55 Pulse Ox 96 11/27/17 16:55 - Labs Result Diagrams: 11/27/17 06:53 11/27/17 06:53 Labs: Laboratory Results - last 24 hr 11/26/17 11/27/17 11/27/17 21:00 06:53 06:53 WBC 7.7 RBC 4.17 Hgb 11.7 Hct 34.6 MCV 83.0 MCH 28.1 MCHC 33.8 RDW 14.7 H Plt Count 215 MPV 8.7 Neut % (Auto) 75.4 H Lymph % (Auto) 13.8 L [place] % (Auto) 9.6 Eos % (Auto) 0.7 Baso % (Auto) 0.5 Neut # (Auto) 5.8 Lymph # (Auto) 1.1 [place] # (Auto) 0.7 Eos # (Auto) 0.1 Baso # (Auto) 0.0 Sodium 139 Potassium 4.1 Chloride 102 Carbon Dioxide 27 Anion Gap 14 BUN 14 Creatinine 0.8 Est GFR ( Amer) > 60 Est GFR (Non-Af Amer) > 60 POC Glucose (mg/dL) 290 H Random Glucose 276 H Calcium 9.2 Magnesium 1.5 L Total Bilirubin 0.5 AST 20 ALT 25 Alkaline Phosphatase 148 H Total Protein 6.8 Albumin 3.6 Globulin 3.3 Albumin/Globulin Ratio 1.1 11/27/17 11/27/17 11/27/17 07:19 11:14 16:34 WBC RBC Hgb Hct MCV MCH MCHC RDW Plt Count MPV Neut % (Auto) Lymph % (Auto) [place] % (Auto) Eos % (Auto) Baso % (Auto) Neut # (Auto) Lymph # (Auto) [place] # (Auto) Eos # (Auto) Baso # (Auto) Sodium Potassium Chloride Carbon Dioxide Anion Gap BUN Creatinine Est GFR ( Amer) Est GFR (Non-Af Amer) POC Glucose (mg/dL) 281 H 251 H 211 H Random Glucose Calcium Magnesium Total Bilirubin AST ALT Alkaline Phosphatase Total Protein Albumin Globulin Albumin/Globulin Ratio Assessment & Plan (1) Acute osteomyelitis Status: Acute - Assessment and Plan (Free Text) Assessment: morbidly obese diabetic female with COPD is admitted with OM right foot secondary to DM/ non healing ulcer consider vascular eval cont IV rx for 6-8 weeks
[2017-11-27] MEDS: Insulin Detemir 100 units/ml Vial (Levemir) SC SCH (21:29)
--- NOTE | 2017-11-28 02:41 | CP.PCM.PN ---
Subjective - Date & Time of Evaluation Date of Evaluation: 11/27/17 Time of Evaluation: 11:00 - Subjective Subjective: Podiatry Progress Note- Dr. Abbott 67 y.o female 1 day s/p radical excision of nonviable bone and soft tissue from right foot secondary to chronic OM. Patient is seen resting comfortably in bed, in NAD, and AA0x3. Patient reports she has lost appetite to eat. Reports mild pain to the right foot, managed by pain medication. Patient denies nausea, fever , shortness of breath, chest pain or chills. Reports feeling tired. Objective - Vital Signs/Intake and Output Vital Signs (last 24 hours): Temp Pulse Resp BP Pulse Ox 98.8 F 92 H 20 135/75 98 11/28/17 01:30 11/28/17 01:30 11/28/17 01:30 11/28/17 01:30 11/28/17 00:56 Intake and Output: 11/27/17 11/28/17 18:59 06:59 Intake Total 560 Balance 560 - Medications Medications: Current Medications Acetaminophen (Tylenol 325mg Tab) 650 mg PO Q6 PRN PRN Reason: Pain, Mild (1-3) Last Admin: 11/27/17 17:20 Dose: 650 mg Albuterol (Ventolin Hfa 90 Mcg/Actuation (8 G)) 1 puff IH Q4H PRN PRN Reason: Wheezing Aripiprazole (Abilify) 5 mg PO HS [facility] Last Admin: 11/27/17 21:27 Dose: 5 mg Dextrose (Dextrose 50% Inj) 0 ml IV STAT PRN; Protocol PRN Reason: Hypoglycemia Protocol Dextrose (Glutose 15) 0 gm PO ONCE PRN; Protocol PRN Reason: Hypoglycemia Protocol Gabapentin (Neurontin) 300 mg PO TID [facility] Last Admin: 11/27/17 17:25 Dose: 300 mg Glipizide (Glucotrol) 5 mg PO DAILY [facility] Last Admin: 11/27/17 11:49 Dose: 5 mg Glucagon (Glucagen Diagnostic Kit) 0 mg IM STAT PRN; Protocol PRN Reason: Hypoglycemia Protocol Dextrose (Dextrose 5% In Water 1000 Ml) 1,000 mls @ 0 mls/hr IV .Q0M PRN; Protocol; Per Protocol PRN Reason: Hypoglycemia Protocol Piperacillin Sod/Tazobactam (Sod 3.375 gm/ Sodium Chloride) 100 mls @ 200 mls/ hr IVPB Q8H [facility] PRN Reason: Protocol Last Admin: 11/27/17 21:34 Dose: 200 mls/hr Vancomycin/Sodium Chloride (Vancomycin 1 Gm/Ns 200 Ml) 1 gm in 200 mls @ 133 mls/hr IVPB Q12H [facility] PRN Reason: Protocol Stop: 12/02/17 18:01 Last Admin: 11/27/17 18:00 Dose: 133 mls/hr Insulin Detemir (Levemir) 15 unit SC [facility] Last Admin: 11/27/17 21:29 Dose: 15 units Insulin Human Regular (Novolin R) 0 unit SC [facility] PRN Reason: Protocol Last Admin: 11/27/17 21:30 Dose: Not Given Lisinopril (Zestril) 20 mg PO DAILY [facility] Last Admin: 11/27/17 09:50 Dose: 20 mg Ondansetron HCl (Zofran Inj) 4 mg IVP Q6H PRN PRN Reason: Nausea/Vomiting Last Admin: 11/27/17 20:00 Dose: 4 mg Oxycodone/Acetaminophen (Percocet 5/325 Mg Tab) 1 tab PO Q4H PRN PRN Reason: Pain, moderate (4-7) Stop: 11/29/17 11:13 Last Admin: 11/26/17 22:12 Dose: 1 tab Oxycodone/Acetaminophen (Percocet 5/325 Mg Tab) 2 tab PO Q4H PRN PRN Reason: Pain, severe (8-10) Stop: 11/29/17 11:13 Last Admin: 11/26/17 16:15 Dose: 2 tab Paroxetine HCl (Paxil) 20 mg PO DAILY [facility] Last Admin: 11/27/17 09:50 Dose: 20 mg Fluticasone/Salmeterol (Advair Diskus 250/50) 1 puff INH RQ12 [facility] Last Admin: 11/26/17 19:26 Dose: Not Given Trazodone HCl (Desyrel) 50 mg PO [facility] Last Admin: 11/27/17 21:28 Dose: 50 mg - Labs Labs: 11/27/17 06:53 11/27/17 06:53 PT 11.0 SECONDS (9.7-12.2) 11/26/17 08:03 INR 1.0 11/26/17 08:03 APTT 32 SECONDS (21-34) 11/26/17 08:03 - Constitutional Appears: Well, Non-toxic, No Acute Distress - Extremities Exam Extremities Exam: absent: Calf Tenderness Additional comments: VASC: DP 1/4 bilaterally, PT nonpalpable, CFT slightly delayed x 10 digits, temperature gradient right lower extremity is warm to warm, left lower extremity is warm to cool ORTHO: very mild pain with palpation the the surgical sites NEURO: gross sensation diminished, protective sensation completely absent DERM: dorsal surgical incision remained opened with packing. No active drainage noted. Ulcerations noted to the right foot, at sub metatarsal 1 and posterior heel Sub metatarsal 1 ulceration measures approximately 1 x 1 and deep with umm, margins intact and hyperkeratotic, mild drainage noted, mild erythema, no streaking, undermining noted entire peripheral, no tunneling, no abscess or fluctance Posterior heel ulceration measures approximately 1 cm x .5 cm x .2 cm with wound base mixture of granular and fibroic. Wound edges intact, mild drainage, no erythema, no streaking, no undermining, no tunneling, no abscess or fluctance , no odor Increase warmth to the right foot compared to the left - Neurological Exam Neurological Exam: Alert, Awake, Oriented x3 - Psychiatric Exam Psychiatric exam: Normal Affect, Normal Mood Assessment and Plan - Assessment and Plan (Free Text) Assessment: 67 y.o female 1 day s/p radical excision of nonviable bone and soft tissue from right foot secondary to chronic OM. Plan: Patient seen and evaluated with Dr. Abbott Labs, vitals reviewed X-rays reviewed- ill defined margin noted to the sesamoids, proximal phalanx and distal metatarsal s/p procedure ESR 46 Pour hydrogen peroxide to soak dressing 5 minutes prior to removal. Remove outer dressing, then removed idoform, applied abd, kerlix and PATRICK. Wound culture taken sub met 1 right foot-pending Wound culture taken plantar heel right foot- pending Dressed with 4x4, dsd, abd, kerlix and very light PATRICK Patient may WBAT to the heels Please dispense surgical shoe Physical please treat and evaluate Infectious disease Dr. Banerjee consulted, ID recommendations appreciated IV Abx 6-8 weeks per ID No more surgical intervention during this hospital stay Will continue to follow while in house
[2017-11-28] MEDS: Oxycodone/Acetaminophen 5/325 mg Tab PO PRN ×2 (04:32→12:33)
[2017-11-28] MEDS: Piperacillin/Tazobact 3.375 GM in Sodium Chloride 100 ML IVPB SCH ×3 (05:33→22:30)
[2017-11-28] MEDS: Vancomycin 1 gm/NS 200 ml 1 GM/200 ML BAG IVPB SCH ×2 (05:51→18:17)
[2017-11-28] MEDS: (Novolin R) Insulin Human Regular 100 units/ml vial SC SCH ×4 (08:41→22:04)
[2017-11-28 08:49] LABS: HEPATITIS B SURFACE AG Negative (NEGATIVE)
[2017-11-28 08:57] LABS: HEPATITIS A IGM NEGATIVE (NEGATIVE); HEPATITIS B CORE AB NEGATIVE (NEGATIVE)
[2017-11-28 09:06] LABS: HEPATITIS C ANTIBODY NEGATIVE (NEGATIVE)
[2017-11-28] MEDS: Fluticasone-Salmeterol 250-50mcg Diskus INH SCH (11:14)
--- NOTE | 2017-11-28 16:09 | CP.PCM.PN ---
Subjective - Date & Time of Evaluation Date of Evaluation: 11/28/17 Time of Evaluation: 16:05 - Subjective Subjective: Podiatry Progress Note- Dr. Abbott 67 y.o female 2 days s/p radical excision of nonviable bone and soft tissue from right foot secondary to chronic OM. Patient is seen resting comfortably in bed, in NAD, and AA0x3. Patient reports she has lost appetite to eat. Reports mild pain to the right foot, managed by pain medication. Patient denies nausea, fever, shortness of breath, chest pain or chills. Reports feeling tired. Significant Strike-through noted to the dressing Objective - Vital Signs/Intake and Output Vital Signs (last 24 hours): Temp Pulse Resp BP Pulse Ox 98.5 F 87 20 129/83 97 11/28/17 09:00 11/28/17 09:00 11/28/17 09:00 11/28/17 09:00 11/28/17 09:00 Intake and Output: 11/28/17 11/28/17 06:59 18:59 Intake Total 540 560 Balance 540 560 - Medications Medications: Current Medications Acetaminophen (Tylenol 325mg Tab) 650 mg PO Q6 PRN PRN Reason: Pain, Mild (1-3) Last Admin: 11/27/17 17:20 Dose: 650 mg Albuterol (Ventolin Hfa 90 Mcg/Actuation (8 G)) 1 puff IH Q4H PRN PRN Reason: Wheezing Aripiprazole (Abilify) 5 mg PO HS [facility] Last Admin: 11/27/17 21:27 Dose: 5 mg Dextrose (Dextrose 50% Inj) 0 ml IV STAT PRN; Protocol PRN Reason: Hypoglycemia Protocol Dextrose (Glutose 15) 0 gm PO ONCE PRN; Protocol PRN Reason: Hypoglycemia Protocol Gabapentin (Neurontin) 300 mg PO TID [facility] Last Admin: 11/28/17 14:08 Dose: 300 mg Glipizide (Glucotrol) 5 mg PO DAILY [facility] Last Admin: 11/28/17 09:31 Dose: 5 mg Glucagon (Glucagen Diagnostic Kit) 0 mg IM STAT PRN; Protocol PRN Reason: Hypoglycemia Protocol Dextrose (Dextrose 5% In Water 1000 Ml) 1,000 mls @ 0 mls/hr IV .Q0M PRN; Protocol; Per Protocol PRN Reason: Hypoglycemia Protocol Piperacillin Sod/Tazobactam (Sod 3.375 gm/ Sodium Chloride) 100 mls @ 200 mls/ hr IVPB Q8H [facility] PRN Reason: Protocol Last Admin: 11/28/17 14:08 Dose: 200 mls/hr Vancomycin/Sodium Chloride (Vancomycin 1 Gm/Ns 200 Ml) 1 gm in 200 mls @ 133 mls/hr IVPB Q12H [facility] PRN Reason: Protocol Stop: 12/02/17 18:01 Last Admin: 11/28/17 05:51 Dose: 133 mls/hr Insulin Detemir (Levemir) 15 unit SC [facility] Last Admin: 11/27/17 21:29 Dose: 15 units Insulin Human Regular (Novolin R) 0 unit SC [facility] PRN Reason: Protocol Last Admin: 11/28/17 12:09 Dose: 6 unit Lisinopril (Zestril) 20 mg PO DAILY [facility] Last Admin: 11/28/17 09:31 Dose: 20 mg Ondansetron HCl (Zofran Inj) 4 mg IVP Q6H PRN PRN Reason: Nausea/Vomiting Last Admin: 11/27/17 20:00 Dose: 4 mg Oxycodone/Acetaminophen (Percocet 5/325 Mg Tab) 1 tab PO Q4H PRN PRN Reason: Pain, moderate (4-7) Stop: 11/29/17 11:13 Last Admin: 11/28/17 12:33 Dose: 1 tab Oxycodone/Acetaminophen (Percocet 5/325 Mg Tab) 2 tab PO Q4H PRN PRN Reason: Pain, severe (8-10) Stop: 11/29/17 11:13 Last Admin: 11/26/17 16:15 Dose: 2 tab Paroxetine HCl (Paxil) 20 mg PO DAILY [facility] Last Admin: 11/28/17 09:31 Dose: 20 mg Fluticasone/Salmeterol (Advair Diskus 250/50) 1 puff INH RQ12 [facility] Last Admin: 11/28/17 11:14 Dose: Not Given Trazodone HCl (Desyrel) 50 mg PO [facility] Last Admin: 11/27/17 21:28 Dose: 50 mg - Labs Labs: 11/27/17 06:53 11/27/17 06:53 PT 11.0 SECONDS (9.7-12.2) 11/26/17 08:03 INR 1.0 11/26/17 08:03 APTT 32 SECONDS (21-34) 11/26/17 08:03 - Constitutional Appears: Well, Non-toxic, No Acute Distress - Head Exam Head Exam: ATRAUMATIC, NORMOCEPHALIC - Extremities Exam Additional comments: VASC: DP 1/4 bilaterally, PT nonpalpable, CFT slightly delayed x 10 digits, temperature gradient right lower extremity is warm to warm, left lower extremity is warm to cool ORTHO: very mild pain with palpation the the surgical sites NEURO: gross sensation diminished, protective sensation completely absent DERM: dorsal surgical incision remained opened with packing. No active drainage noted. Ulcerations noted to the right foot, at sub metatarsal 1 and posterior heel Sub metatarsal 1 ulceration measures approximately 1 x 1 and deep with umm, margins intact and hyperkeratotic, no drainage noted, mild erythema, no streaking, undermining noted entire peripheral, no tunneling, no abscess or fluctance Posterior heel ulceration measures approximately 1 cm x .5 cm x .2 cm with wound base mixture of granular and fibroic. Wound edges intact, mild drainage, no erythema, no streaking, no undermining, no tunneling, no abscess or fluctance , no odor Increase warmth to the right foot compared to the left - Neurological Exam Neurological Exam: Alert, Awake, Oriented x3 - Psychiatric Exam Psychiatric exam: Normal Affect, Normal Mood Assessment and Plan - Assessment and Plan (Free Text) Assessment: 67 y/o female 2 days s/p radical excision of nonviable bone and soft tissue from right foot secondary to chronic OM. Plan: Patient seen and evaluated for Dr. Abbott Labs, vitals reviewed- WBC 7.7 (11/27) X-rays reviewed- ill defined margin noted to the sesamoids, proximal phalanx and distal metatarsal s/p procedure ESR 46 Pour hydrogen peroxide to soak dressing 5 minutes prior to removal. Remove outer dressing, then removed iodoform, flush with saline and hydrogen peroxide, applied abd, kerlix and PATRICK. Wound culture taken sub met 1 right foot-Staph Aureus, Coagulase Neg Staph Wound culture taken plantar heel right foot-Staph Aureus, Coagulase Neg Staph Dressed with 4x4, dsd, abd, kerlix and very light PATRICK Patient may WBAT to the heels Please dispense surgical shoe Physical please treat and evaluate Infectious disease IV Abx 6-8 weeks per ID: as per Dr. Chriss martinez IV Abx for 6-8 weeks, pending PICC placement No more surgical intervention during this hospital stay Will continue to follow while in house
[2017-11-28] MEDS: Insulin Detemir 100 units/ml Vial (Levemir) SC SCH (22:17)
[2017-11-29] MEDS: Oxycodone/Acetaminophen 5/325 mg Tab PO PRN ×2 (02:58→17:13)
[2017-11-29] MEDS: Vancomycin 1 gm/NS 200 ml 1 GM/200 ML BAG IVPB SCH ×2 (05:30→17:13)
[2017-11-29] MEDS: Piperacillin/Tazobact 3.375 GM in Sodium Chloride 100 ML IVPB SCH ×3 (06:20→21:47)
[2017-11-29] MEDS: (Novolin R) Insulin Human Regular 100 units/ml vial SC SCH ×4 (08:16→21:46)
[2017-11-29] MEDS: Fluticasone-Salmeterol 250-50mcg Diskus INH SCH ×2 (13:25→21:13)
--- NOTE | 2017-11-29 16:53 | CP.PCM.PN ---
Subjective - Date & Time of Evaluation Date of Evaluation: 11/29/17 Time of Evaluation: 16:50 - Subjective Subjective: Podiatry Progress Note- Dr. San 67 y.o female 3 days s/p radical excision of nonviable bone and soft tissue from right foot secondary to chronic OM. Patient is AAO x 3 and NAD at time of visit. States that pain is well controlled. Denies any acute overnight events or new pedal complaints at this time. Denies any recent N/V/F/C/CP/SOB/D/ posterior calf pain when squeezed. Objective - Vital Signs/Intake and Output Vital Signs (last 24 hours): Temp Pulse Resp BP Pulse Ox 98 F 66 20 134/82 96 11/29/17 08:32 11/29/17 08:32 11/29/17 08:32 11/29/17 08:32 11/29/17 08:32 Intake and Output: 11/29/17 11/29/17 06:59 18:59 Intake Total 600 1000 Balance 600 1000 - Medications Medications: Current Medications Acetaminophen (Tylenol 325mg Tab) 650 mg PO Q6 PRN PRN Reason: Pain, Mild (1-3) Last Admin: 11/27/17 17:20 Dose: 650 mg Albuterol (Ventolin Hfa 90 Mcg/Actuation (8 G)) 1 puff IH Q4H PRN PRN Reason: Wheezing Aripiprazole (Abilify) 5 mg PO HS [facility] Last Admin: 11/28/17 22:18 Dose: 5 mg Dextrose (Dextrose 50% Inj) 0 ml IV STAT PRN; Protocol PRN Reason: Hypoglycemia Protocol Dextrose (Glutose 15) 0 gm PO ONCE PRN; Protocol PRN Reason: Hypoglycemia Protocol Gabapentin (Neurontin) 300 mg PO TID [facility] Last Admin: 11/29/17 13:44 Dose: 300 mg Glipizide (Glucotrol) 5 mg PO DAILY [facility] Last Admin: 11/29/17 10:27 Dose: 5 mg Glucagon (Glucagen Diagnostic Kit) 0 mg IM STAT PRN; Protocol PRN Reason: Hypoglycemia Protocol Piperacillin Sod/Tazobactam (Sod 3.375 gm/ Sodium Chloride) 100 mls @ 200 mls/ hr IVPB Q8H [facility] PRN Reason: Protocol Last Admin: 11/29/17 13:45 Dose: 200 mls/hr Vancomycin/Sodium Chloride (Vancomycin 1 Gm/Ns 200 Ml) 1 gm in 200 mls @ 133 mls/hr IVPB Q12H [facility] PRN Reason: Protocol Stop: 12/02/17 18:01 Last Admin: 11/29/17 05:30 Dose: 133 mls/hr Insulin Detemir (Levemir) 15 unit SC HS [facility] Last Admin: 11/28/17 22:17 Dose: 15 units Insulin Human Regular (Novolin R) 0 unit SC [facility] PRN Reason: Protocol Last Admin: 11/29/17 11:17 Dose: Not Given Lisinopril (Zestril) 20 mg PO DAILY [facility] Last Admin: 11/29/17 10:27 Dose: 20 mg Ondansetron HCl (Zofran Inj) 4 mg IVP Q6H PRN PRN Reason: Nausea/Vomiting Last Admin: 11/27/17 20:00 Dose: 4 mg Paroxetine HCl (Paxil) 20 mg PO DAILY [facility] Last Admin: 11/29/17 10:27 Dose: Not Given Fluticasone/Salmeterol (Advair Diskus 250/50) 1 puff INH RQ12 [facility] Last Admin: 11/29/17 13:25 Dose: Not Given Trazodone HCl (Desyrel) 50 mg PO [facility] Last Admin: 11/28/17 22:18 Dose: 50 mg - Labs Labs: 11/27/17 06:53 11/27/17 06:53 PT 11.0 SECONDS (9.7-12.2) 11/26/17 08:03 INR 1.0 11/26/17 08:03 APTT 32 SECONDS (21-34) 11/26/17 08:03 - Constitutional Appears: Well, Non-toxic, No Acute Distress - Extremities Exam Additional comments: VASC: DP 1/4 bilaterally, PT nonpalpable, CFT slightly delayed x 10 digits, temperature gradient right lower extremity is warm to warm, left lower extremity is warm to cool ORTHO: very mild pain with palpation to the surgical sites NEURO: gross sensation diminished, protective sensation completely absent DERM: dorsal surgical incision remained opened with iodosorb packing. No active drainage noted. Ulcerations noted to the right foot, at sub metatarsal 1 and posterior heel Sub metatarsal 1 ulceration measures approximately 1 x 1 and deep with umm, margins intact and hyperkeratotic, no drainage noted, mild erythema, no streaking, undermining noted entire peripheral, no tunneling, no abscess or fluctance Posterior heel ulceration measures approximately 1 cm x .5 cm x .2 cm with wound base mixture of granular and fibroic. Wound edges intact, no drainage, no erythema, no streaking, no undermining, no tunneling, no abscess or fluctance, no odor - Neurological Exam Neurological Exam: Alert, Awake, Oriented x3 - Psychiatric Exam Psychiatric exam: Normal Affect, Normal Mood Assessment and Plan - Assessment and Plan (Free Text) Assessment: 67 y.o female 3 days s/p radical excision of nonviable bone and soft tissue from right foot secondary to chronic OM Plan: Patient seen and evaluated Plan discussed with Dr. San Afebrile Continue abx per ID X-ray - no OM, erosive arthritis, 1st MPJ swelling, possible inflammatory, goury or infectious arthritis S/P x-rays- poststatus surgery ESR-46 (s/p procedure) WC R sub met 1- Staph Aureus, Coagulase Neg Staph WC R heel- Staph Aureus, Coagulase Neg Staph Will f/u with Dr. Banerjee about PICC line placement for 6-8 weeks IV abx Wound dressed with hydrogen peroxide, packing, gauze, ABD, kirlix No plan for further surgical intervention at this time Podiatry will continue to follow while patient in house
[2017-11-29] MEDS: Insulin Detemir 100 units/ml Vial (Levemir) SC SCH (21:48)
[2017-11-30] MEDS: Vancomycin 1 gm/NS 200 ml 1 GM/200 ML BAG IVPB SCH (05:15)
[2017-11-30] MEDS: Piperacillin/Tazobact 3.375 GM in Sodium Chloride 100 ML IVPB SCH ×2 (06:30→15:16)
[2017-11-30] MEDS: (Novolin R) Insulin Human Regular 100 units/ml vial SC SCH ×3 (08:36→17:46)
[2017-11-30 09:02] VITALS: PULSE 65; RESP 20
--- NOTE | 2017-11-30 09:25 | PN ---
Copied To: Jeferson Puri MD Attending MD: Jeferson Puri MD DATE: 11/28/2017 The patient is to get IV antibiotics. Supportive care. Nuclear medicine. Jeferson Puri MD
--- NOTE | 2017-11-30 09:31 | OP ---
Copied To: Gabriella Mckay, PGY Attending MD: Jh Ulloa DPM PROCEDURE DATE: 11/26/2017 PATIENT AGE: 67. PATIENT SEX: Female. SURGEON: Jh Ulloa DPM ASSISTANTS: Gabriella Mckay, PGY-1 and Bear Chauhan PGY-1 ANESTHESIA: IV sedation with local block. PREOPERATIVE DIAGNOSIS: Chronic osteomyelitis of the first ray, right. POSTOPERATIVE DIAGNOSIS: Chronic osteomyelitis of the first ray, right. NAME OF PROCEDURE: Radical excision of nonviable bone and soft tissue from right foot. INDICATIONS: The patient is a 67-year-old female with the above diagnosis. The patient has exhausted conservative treatment at this time and is now resuming surgical intervention. The patient signed the consent after careful explanation of risks, benefits, complications, and alternatives of the surgical procedure. No guarantees were given nor implied. Ancef 2 g IV was given to the patient half an hour prior to the procedure. N.p.o. status was confirmed prior to taking the patient to the OR. PREPARATION: The patient was brought to the operating room and placed on the operating room table in a supine position. After induction of IV sedation, the patient received a total of 20 mL of 1:1 mixture of 0.5% Marcaine and 1% lidocaine plain in a local block fashion to the right foot. Once local anesthesia was achieved, the right foot was then prepped and draped in the usual sterile manner. A time-out was performed and the procedure began. DESCRIPTION OF PROCEDURE: Attention was then directed to the dorsal aspect of the patient's first metatarsophalangeal joint where an approximately 6-cm linear longitudinal incision was made medial parallel to the tendon of the and involved the contour of the deformity. The incision was deepened into the subcutaneous tissues and capsule of the first metatarsophalangeal joint with a needle tip Bovie with care being taken to identify and retract all vital neurovascular structures. All bleeders were cauterized and ligated as necessary. The periosteal capsular structures were then carefully dissected free of the osseous medially and laterally, thus exposing the head of the patient's proximal phalanx . Next, utilizing a sagittal bone saw, the dorsum of the medial prominences were resected and passed off the operative field. Attention was then directed to the patient's proximal phalanx of the hallux which was resected utilizing the sagittal bone saw. Attention was then directed to the which was freed from all the soft tissue attachments, resected and passed off from the operative field. The wound was then flushed with copious amounts of 1:1 mix of sterile normal saline with hydrogen peroxide. Attention was then directed to the plantar aspect of the submetatarsal bone where all hyperkeratotic and necrotic tissues were debrided and passed off from the operative field. At this time, there was noted sinus from submetatarsal bone as well as first metatarsal head. The wound was then flushed again with copious amounts of 1:1 mixture of sterile normal saline with hydrogen peroxide. The wound was packed with iodoform packing, and the Sophia drain was placed. Attention was then directed dorsally where the subcuticular tissues were reapproximated using 2-0 chromic gut. The skin was then reapproximated and coapted utilizing #4-0 nylon leaving space for the Anthony drain and packing. POSTOPERATIVE CONDITION: The patient tolerated the anesthesia and procedure well and was escorted to recovery room with all vital signs stable and neurovascular status intact to the right foot. The patient is to follow with Dr. Ulloa within one week of surgery. ABDI Dumont Jh Ulloa DPM
[2017-11-30 11:38] LABS: BASO # 0.1 K/uL (0.0-0.2); BASO % 1.2 % (0.0-2.0); EOS # 0.2 K/uL (0.0-0.7); EOS % 4.6 % (0.0-4.0); HEMOGLOBIN 10.7 g/dL (11.0-16.0); LYMPH # 1.3 K/uL (1.0-4.3); LYMPH % 26.7 % (20.0-40.0); MEAN CELL VOLUME 83.8 fL (81.0-99.0); MEAN CORPUSCULAR HEMOGLOBIN 27.7 pg (27.0-31.0); MEAN CORPUSCULAR HGB CONC 33.1 g/dL (33.0-37.0); MEAN PLATELET VOLUME 8.9 fL (7.2-11.7); MONO # 0.6 K/uL (0.0-0.8); MONO % 11.8 % (0.0-10.0); NEUT # 2.7 K/uL (1.8-7.0); NEUT % 55.7 % (50.0-75.0); NRBC % 0.3 % (0.0-2.0); RBC 3.87 Mil/uL (3.80-5.20); RED CELL DISTRIBUTION WIDTH 14.4 % (11.5-14.5); WHITE BLOOD COUNT 4.9 K/uL (4.8-10.8)
[2017-11-30 11:50] LABS: ALBUMIN 3.3 g/dL (3.5-5.0); ALT/SGPT 59 U/L (9-52); AST/SGOT 35 U/L (14-36); BLOOD UREA NITROGEN 14 mg/dL (7-17); CALCIUM 8.4 mg/dl (8.6-10.4); GFR NON-AFRICAN AMERICAN > 60
--- NOTE | 2017-11-30 12:16 | CP.PCM.PN ---
Subjective - Date & Time of Evaluation Date of Evaluation: 11/30/17 Time of Evaluation: 12:12 - Subjective Subjective: PGYIII progress note for Dr. Puri Pt seen and examined at bedside. Pt is sitting comfortably in bed. Complaining of right foot pain. Denies having any CP, SOB, abd pain, N/V/D/C, F/C. Tolerating diet. Last BM yesterday. Objective - Vital Signs/Intake and Output Vital Signs (last 24 hours): Temp Pulse Resp BP Pulse Ox 97.9 F 65 20 150/81 95 11/30/17 09:01 11/30/17 09:01 11/30/17 09:01 11/30/17 09:01 11/30/17 09:01 Intake and Output: 11/30/17 11/30/17 06:59 18:59 Intake Total 660 Balance 660 - Medications Medications: Current Medications Acetaminophen (Tylenol 325mg Tab) 650 mg PO Q6 PRN PRN Reason: Pain, Mild (1-3) Last Admin: 11/27/17 17:20 Dose: 650 mg Albuterol (Ventolin Hfa 90 Mcg/Actuation (8 G)) 1 puff IH Q4H PRN PRN Reason: Wheezing Aripiprazole (Abilify) 5 mg PO HS [facility] Last Admin: 11/29/17 21:47 Dose: 5 mg Dextrose (Dextrose 50% Inj) 0 ml IV STAT PRN; Protocol PRN Reason: Hypoglycemia Protocol Dextrose (Glutose 15) 0 gm PO ONCE PRN; Protocol PRN Reason: Hypoglycemia Protocol Gabapentin (Neurontin) 300 mg PO TID [facility] Last Admin: 11/30/17 10:02 Dose: 300 mg Glipizide (Glucotrol) 5 mg PO DAILY [facility] Last Admin: 11/30/17 10:01 Dose: 5 mg Glucagon (Glucagen Diagnostic Kit) 0 mg IM STAT PRN; Protocol PRN Reason: Hypoglycemia Protocol Piperacillin Sod/Tazobactam (Sod 3.375 gm/ Sodium Chloride) 100 mls @ 200 mls/ hr IVPB Q8H [facility] PRN Reason: Protocol Last Admin: 11/30/17 06:30 Dose: Not Given Vancomycin/Sodium Chloride (Vancomycin 1 Gm/Ns 200 Ml) 1 gm in 200 mls @ 133 mls/hr IVPB Q12H [facility] PRN Reason: Protocol Stop: 12/02/17 18:01 Last Admin: 11/30/17 05:15 Dose: 133 mls/hr Insulin Detemir (Levemir) 15 unit SC [facility] Last Admin: 11/29/17 21:48 Dose: 15 units Insulin Human Regular (Novolin R) 0 unit SC [facility] PRN Reason: Protocol Last Admin: 11/30/17 08:36 Dose: 4 unit Lisinopril (Zestril) 20 mg PO DAILY [facility] Last Admin: 11/30/17 10:01 Dose: 20 mg Ondansetron HCl (Zofran Inj) 4 mg IVP Q6H PRN PRN Reason: Nausea/Vomiting Last Admin: 11/30/17 05:14 Dose: 4 mg Oxycodone/Acetaminophen (Percocet 5/325 Mg Tab) 2 tab PO Q4H PRN PRN Reason: Pain, moderate (4-7) Stop: 12/02/17 16:58 Last Admin: 11/29/17 17:13 Dose: 2 tab Paroxetine HCl (Paxil) 20 mg PO DAILY [facility] Last Admin: 11/30/17 10:02 Dose: 20 mg Fluticasone/Salmeterol (Advair Diskus 250/50) 1 puff INH RQ12 [facility] Last Admin: 11/29/17 21:13 Dose: Not Given Trazodone HCl (Desyrel) 50 mg PO HS [facility] Last Admin: 11/29/17 21:51 Dose: Not Given - Labs Labs: 11/30/17 11:23 11/30/17 11:23 PT 11.0 SECONDS (9.7-12.2) 11/26/17 08:03 INR 1.0 11/26/17 08:03 APTT 32 SECONDS (21-34) 11/26/17 08:03 - Constitutional Appears: Non-toxic, No Acute Distress - Head Exam Head Exam: ATRAUMATIC, NORMOCEPHALIC - ENT Exam ENT Exam: Mucous Membranes Moist - Respiratory Exam Respiratory Exam: Clear to Ausculation Bilateral. absent: Accessory Muscle Use , Rales, Rhonchi, Wheezes, Respiratory Distress - Cardiovascular Exam Cardiovascular Exam: REGULAR RHYTHM, +S1, +S2. absent: Gallop, Rubs, Murmur - GI/Abdominal Exam GI & Abdominal Exam: Soft, Normal Bowel Sounds. absent: Distended, Firm, Guarding, Rigid, Tenderness, Organomegaly - Extremities Exam Additional comments: right LE bandaged up - Neurological Exam Neurological Exam: Alert, Awake, Oriented x3 - Psychiatric Exam Psychiatric exam: Normal Affect, Normal Mood - Skin Skin Exam: Dry, Intact, Normal Color, Warm Assessment and Plan - Assessment and Plan (Free Text) Assessment: R foot Osteomyelitis s/p radical excision of nonviable bone and soft tissue fro right foot POD # 4 Podiatry, Dr. Abbott is consulted ID consult, Dr. Banerjee is consulted. recommend 6-8 weeks of IV abx. Pt will require PICC line for Abx. PICC line access requested. Currently on Zosyn and vanco Pain management with tylenol and percocet Diabetes Accuchecks ISS - High Restarted home medications: * Levemir 15 units SC HS * Glipizide 5mg PO daily * Gabapentin 300mg PO TID for diabetic neuropathy Will check HgbA1c Hypertension continue to monitor Restarted home medications: * Lisinopril 20mg PO daily Hx of Asthma Continue home meds: * Advair Diskus 250/50 1puff INH q12h * Albuterol 1 puff INH q4h prn - SOB Heroin Abuse Admits to using 2-3 bags of heroin daily. Denies IV drug use Psych consulted, Dr. Almanza Nausea Start zofran 4mg IVP q6H PRN nausea Electrolyte Imbalance Hypomagnesemia, Mg 1.5 - Mag sulfate x2bags Prophylactic Care DVT: AC contraindicated due to pre-op SCDs contraindicated due to LE edema Dispo: Pt will get PICC line today and then placement at [facility] for telephone messenger Abx treatment. All medical management per Dr. Puri.
--- NOTE | 2017-11-30 16:21 | RAD ---
Date of service: 11/30/2017 HISTORY: verify right PICC COMPARISON: No prior. FINDINGS: LUNGS: No active pulmonary disease. PLEURA: No significant pleural effusion identified, no pneumothorax apparent. CARDIOVASCULAR: Normal heart size. Artifactual magnification due to portable technique and apical lordotic positioning. Right PICC catheter with tip at the level of the cavoatrial junction. OSSEOUS STRUCTURES: No significant abnormalities. VISUALIZED UPPER ABDOMEN: Normal. OTHER FINDINGS: None. IMPRESSION: New right PICC catheter terminating at the level of the cavoatrial junction. Otherwise unremarkable.
[2017-11-30 16:29] VITALS: BP 127/74; TEMP 98; O2SAT 96
[2017-11-30] MEDS: Oxycodone/Acetaminophen 5/325 mg Tab PO PRN (17:49)
--- NOTE | 2017-11-30 19:12 | CP.PCM.PN ---
Subjective - Date & Time of Evaluation Date of Evaluation: 11/30/17 Time of Evaluation: 09:09 - Subjective Subjective: Podiatry Progress Note- Dr. San 67 y.o female 4 days s/p radical excision of nonviable bone and soft tissue from right foot secondary to chronic OM. Patient is AAO x 3 and NAD at time of visit. States that pain is well controlled. Denies any acute overnight events or new pedal complaints at this time. Denies any recent N/V/F/C/CP/SOB/D/ posterior calf pain when squeezed. Patient is wondering when/if she will be receiving her PICC line Objective - Vital Signs/Intake and Output Vital Signs (last 24 hours): Temp Pulse Resp BP Pulse Ox 98 F 65 20 127/74 96 11/30/17 16:00 11/30/17 16:00 11/30/17 16:00 11/30/17 16:00 11/30/17 16:00 Intake and Output: 11/30/17 12/01/17 18:59 06:59 Intake Total 0 Balance 0 - Labs Labs: 11/30/17 11:23 11/30/17 11:23 PT 11.0 SECONDS (9.7-12.2) 11/26/17 08:03 INR 1.0 11/26/17 08:03 APTT 32 SECONDS (21-34) 11/26/17 08:03 - Constitutional Appears: Well, Non-toxic, No Acute Distress - Extremities Exam Additional comments: VASC: DP 1/4 bilaterally, PT nonpalpable, CFT slightly delayed x 10 digits, temperature gradient right lower extremity is warm to warm, left lower extremity is warm to cool ORTHO: very mild pain with palpation to the surgical sites NEURO: gross sensation diminished, protective sensation completely absent DERM: dorsal surgical incision remained opened with iodosorb packing. No active drainage noted. Ulcerations noted to the right foot, at sub metatarsal 1 and posterior heel Sub metatarsal 1 ulceration measures approximately 1 x 1 and deep with umm, margins intact and hyperkeratotic, no drainage noted, mild erythema, no streaking, undermining noted entire peripheral, no tunneling, no abscess or fluctance Posterior heel ulceration measures approximately 1 cm x .5 cm x .2 cm with wound base mixture of granular and fibroic. Wound edges intact, no drainage, no erythema, no streaking, no undermining, no tunneling, no abscess or fluctance, no odor Overall, all wounds continue to improve clinically - Neurological Exam Neurological Exam: Alert, Awake, Oriented x3 - Psychiatric Exam Psychiatric exam: Normal Affect, Normal Mood Assessment and Plan - Assessment and Plan (Free Text) Assessment: 67 y.o female 4 days s/p radical excision of nonviable bone and soft tissue from right foot secondary to chronic OM Plan: Patient seen and evaluated Plan discussed with Dr. San Afebrile Continue abx per ID X-ray - no OM, erosive arthritis, 1st MPJ swelling, possible inflammatory, goury or infectious arthritis S/P x-rays- poststatus surgery ESR-46 (s/p procedure) WC R sub met 1- Staph Aureus, Coagulase Neg Staph WC R heel- Staph Aureus, Coagulase Neg Staph Wound dressed with hydrogen peroxide, packing, gauze, ABD, kirlix No plan for further surgical intervention at this time PICC line placed Patient to be DC to [facility] May follow up with Dr. San on outpatient basis
--- NOTE | 2017-12-01 14:16 | RAD ---
Date of service: 11/25/2017 PROCEDURE: CHEST RADIOGRAPH, 1 VIEW HISTORY: pre-op COMPARISON: None available. FINDINGS: LUNGS: Clear. PLEURA: No pneumothorax or pleural fluid seen. CARDIOVASCULAR: Normal. OSSEOUS STRUCTURES: No significant abnormalities. VISUALIZED UPPER ABDOMEN: Normal. OTHER FINDINGS: None. IMPRESSION: No active disease.
--- NOTE | 2017-12-03 10:24 | DS ---
Copied To: Jeferson Puri MD Attending MD: Jeferson Puri MD The patient is a 67 year-old female admitted to the hospital with a chief complaint of foot infection, osteomyelitis. The patient received IV antibiotics , incision and drainage of the foot, was on IV antibiotics . The patient is transferred to subacute rehab for further IV antibiotics. Osteomyelitis, of the foot, hypertension. Jeferson Puri MD
== END 2017-11-30 18:53 | DRG 623 ==
LOC: C.ER 10:28 → C.9E 11:20 → C.3T 14:22
PROVIDERS: ADMIT Internal Medicine Pulmonary Disease; ATTEND Internal Medicine Pulmonary Disease
PROC: 0QBN0ZZ Excision of Right Metatarsal, Open Approach (ICD-10-PCS; 2017-11-26)
PROC: 0QTQ0ZZ Resection of Right Toe Phalanx, Open Approach (ICD-10-PCS; 2017-11-26)
PROC: 0JBQ0ZZ Excision of Right Foot Subcutaneous Tissue and Fascia, Open Approach (ICD-10-PCS; principal; 2017-11-26 10:15)
DX: E11.69 Type 2 diabetes mellitus with other specified complication (principal); M86.671 Other chronic osteomyelitis, right ankle and foot; E11.621 Type 2 diabetes mellitus with foot ulcer; L97.519 Non-pressure chronic ulcer of other part of right foot with unspecified severity; I10 Essential (primary) hypertension; M15.4 Erosive (osteo)arthritis; J44.9 Chronic obstructive pulmonary disease, unspecified; M06.9 Rheumatoid arthritis, unspecified; F33.2 Major depressive disorder, recurrent severe without psychotic features; F11.10 Opioid abuse, uncomplicated; F41.1 Generalized anxiety disorder; E83.42 Hypomagnesemia; E66.01 Morbid (severe) obesity due to excess calories; F17.210 Nicotine dependence, cigarettes, uncomplicated; Z68.41 Body mass index [BMI] 40.0-44.9, adult; S91.331S Puncture wound without foreign body, right foot, sequela; W45.0XXS Nail entering through skin, sequela; Z79.4 Long term (current) use of insulin; Z90.710 Acquired absence of both cervix and uterus; Z90.49 Acquired absence of other specified parts of digestive tract

== ENCOUNTER 2018-05-10 11:36 | Outpatient (CLI) | payer MEDICARE, MEDICAID | END 2018-05-10 11:37 | disposition home or self-care (01) | LOC: C.PAT 11:36 | DX: L97.519 Non-pressure chronic ulcer of other part of right foot with unspecified severity (principal) ==

== ENCOUNTER 2018-05-10 14:16 | Emergency (ER) | payer MEDICARE, MEDICAID ==
[2018-05-10 14:16] VITALS: BMI 40.7
[2018-05-10 14:39] VITALS: RESP 18; O2SAT 96
[2018-05-10] MEDS ORDERED: (Novolin R) Insulin Human Regular 100 units/ml vial IVP STA (14:58)
[2018-05-10] MEDS ORDERED: Sodium Chloride 0.9% 1,000 ML IV ONE (14:58)
[2018-05-10] MEDS ORDERED: Sodium Chloride 0.9% 1,000 ML ONE (15:12)
[2018-05-10] MEDS ORDERED: (Novolin R) Insulin Human Regular 100 units/ml vial ONE (15:13)
[2018-05-10 15:14] LABS: BASO % 0.8 % (0.0-2.0); EOS # 0.1 K/uL (0.0-0.7); EOS % 2.6 % (0.0-4.0); HEMOGLOBIN 13.2 g/dL (11.0-16.0); LYMPH # 1.6 K/uL (1.0-4.3); LYMPH % 36.1 % (20.0-40.0); MEAN CELL VOLUME 88.3 fL (81.0-99.0); MEAN CORPUSCULAR HEMOGLOBIN 29.3 pg (27.0-31.0); MEAN CORPUSCULAR HGB CONC 33.2 g/dL (33.0-37.0); MEAN PLATELET VOLUME 9.3 fL (7.2-11.7); MONO # 0.5 K/uL (0.0-0.8); NEUT # 2.3 K/uL (1.8-7.0); NEUT % 50.5 % (50.0-75.0); NRBC % 0.1 % (0.0-2.0); RBC 4.51 Mil/uL (3.80-5.20); RED CELL DISTRIBUTION WIDTH 13.7 % (11.5-14.5); WHITE BLOOD COUNT 4.6 K/uL (4.8-10.8)
[2018-05-10 15:30] LABS: SQUAMOUS EPITHIAL 3 /hpf (0-5); URINE BACTERIA OCC (<OCC); URINE BILIRUBIN NEGATIVE (NEGATIVE); URINE BLOOD NEGATIVE (NEGATIVE); URINE CLARITY Clear (Clear); URINE COLOR Straw (YELLOW); URINE GLUCOSE (UA) 3+ mg/dL (Normal); URINE LEUKOCYTE ESTERASE 2+ Leu/uL (Negative); URINE PROTEIN NEGATIVE (NEGATIVE); URINE UROBILINOGEN NORMAL mg/dL (0.2-1.0)
--- NOTE | 2018-05-10 15:31 | C.PDOC ---
History Of Present Illness 68 year old female presents to the ED for evaluation s/p preop outpatient testing for Podiatry procedure of R podagra for chronic ulcer. showing high blood sugar. Patient reports she did not eat breakfast nor take her regular meds this morning. States she was instructed to hold meds this morning for the blood draw. No other complaints offered. Does not check FS @ home- needs a FS machine. pt adminsters Levamir 10 units @ [facility] and Regular insulin 2 units BID with meals. Admits to constant polyuria/polydypsia, constant sweets cravings, and extensive junk food diet and minimal nutritious foods Time Seen by Provider: 05/10/18 14:57 Chief Complaint (Nursing): High Blood Sugar History Per: Patient History/Exam Limitations: no limitations Onset/Duration Of Symptoms: Hrs Current Symptoms Are (Timing): Still Present Causative (Exacerbating) Factor(s): Missed A Meal, Missed Taking Medication Past Medical History Reviewed: Historical Data, Nursing Documentation, Vital Signs Vital Signs: Last Vital Signs Temp 98.5 F 05/10/18 14:36 Pulse 82 05/10/18 14:36 Resp 18 05/10/18 14:36 BP 163/92 H 05/10/18 14:36 Pulse Ox 96 05/10/18 14:36 - Medical History PMH: Anxiety, Arthritis (KNEES,), Asthma, Depression, Hypercholesterolemia, Rheumatoid Arthritis Denies: Chronic Kidney Disease Surgical History: Cholecystectomy, Endoscopy - [facility] Procedures EXCISION OF R FOOT SUBCU/FASCIA, OPEN APPROACH (11/25/17) EXCISION OF RIGHT METATARSAL, OPEN APPROACH (11/25/17) RESECTION OF RIGHT TOE PHALANX, OPEN APPROACH (11/25/17) Family History: States: Unknown Family Hx - Social History Hx Alcohol Use: No Hx Substance Use: No Review Of Systems Constitutional: Positive for: Weight loss (intentional), Other (Hyperglycemia). Negative for: Fever, Weakness, Malaise Cardiovascular: Negative for: Chest Pain, Palpitations Respiratory: Negative for: Shortness of Breath Gastrointestinal: Negative for: Nausea, Vomiting, Diarrhea Neurological: Negative for: Numbness, Headache, Dizziness Physical Exam - Physical Exam Appears: Non-toxic, No Acute Distress, Other (Morbidly obese) Skin: Warm, Dry Head: Atraumatic, Normacephalic Eye(s): bilateral: Normal Inspection, PERRL, EOMI Oral Mucosa: Moist Neck: Normal ROM Chest: Symmetrical Cardiovascular: Rhythm Regular, No Murmur Respiratory: Normal Breath Sounds, No Accessory Muscle Use Gastrointestinal/Abdominal: Soft, No Tenderness, No Distention, Other (Obese abdomen) Back: Normal Inspection Extremity: Normal ROM, No Calf Tenderness, No Deformity, Swelling (chronic stasus edema to bilateral lower extremities) Pulses: Left Dorsalis Pedis: Normal, Right Dorsalis Pedis: Normal Neurological/Psych: Oriented x3, Normal Speech ED Course And Treatment - Laboratory Results Result Diagrams: 05/10/18 15:10 05/10/18 15:10 ECG: Interpreted By Me ECG Rhythm: Sinus Bradycardia ECG Interpretation: Normal Rate From EC O2 Sat by Pulse Oximetry: 96 (RA) Pulse Ox Interpretation: Normal - Radiology CXR: Interpreted by Me CXR Interpretation: Yes: No Acute Disease Reevaluation Time: 16:49 Reassessment Condition: Improved (repeat glu 291) Medical Decision Making Medical Decision Making: Impression: 68 y/o F with hyperglycemia, FS BS is > 500 Plan: --EKG --Labs --Chest x-ray --IV fluids --10 units IV insulin elev glu due to no insulin this AM prior to opt testing misunderstanding of opt testing pre-req NO labs/eval findings worrisom for DKA A1C 16 suggests poor baseline glucose control ? diet vs insulin regimen issues renew FS machine, lancet, test strips new regimen more realistic for this 121 kg pt Disposition Doctor Will See Patient In The: Office Counseled Patient/Family Regarding: Studies Performed, Diagnosis - Disposition Referrals: Jeferson Hurtado MD [Staff Provider] - Disposition: HOME/ ROUTINE Disposition Time: 16:50 Condition: GOOD Additional Instructions: tighter glucose control appropriate diet and insulin regimen outpatient follow-up with Dr. Hurtado and a Electric Organ Checker as able. Instructions: The ABCs of Diabetes, Diabetes and Diet Forms: [facility] ([place]) - Clinical Impression Clinical Impression: Hyperglycemia - Scribe Statement The provider has reviewed the documentation as recorded by the Scribe Crista Colunga Provider Attestation: All medical record entries made by the Scribe were at my direction and personally dictated by me. I have reviewed the chart and agree that the record accurately reflects my personal performance of the history, physical exam, medical decision making, and the department course for this patient. I have also personally directed, reviewed, and agree with the discharge instructions and disposition.
[2018-05-10 15:40] LABS: ALB/GLOB RATIO 1.3 (1.0-2.1); ALBUMIN 3.9 g/dL (3.5-5.0); ALT/SGPT 15 U/L (9-52); AST/SGOT 28 U/L (14-36); BLOOD UREA NITROGEN 12 mg/dL (7-17); CALCIUM 8.6 mg/dl (8.6-10.4); GFR NON-AFRICAN AMERICAN > 60
--- NOTE | 2018-05-10 16:56 | RAD ---
HISTORY: Diabetic COMPARISON: Chest x-ray performed 11/30/17 TECHNIQUE: Chest, one view. FINDINGS: Examination limited by habitus. LUNGS: No focal consolidation. Please note that chest x-ray has limited sensitivity for the detection of pulmonary masses. PLEURA: No significant pleural effusion identified. No definite pneumothorax . CARDIOVASCULAR: Heart size appears within normal limits. Faint atherosclerotic calcifications present. OSSEOUS STRUCTURES: Degenerative changes. VISUALIZED UPPER ABDOMEN: Unremarkable. OTHER FINDINGS: None. IMPRESSION: No focal consolidation.
[2018-05-10 17:39] VITALS: BP 121/100; PULSE 87; TEMP 98.2
--- NOTE | 2018-05-12 14:26 | CARD ---
APPROVED REPORT Date of service: 05/10/2018 EKG Measurement Heart [id number] <Conclusion> Normal sinus rhythm Septal infarct, age undetermined Abnormal ECG
== END 2018-05-10 17:41 | disposition home or self-care (01) ==
LOC: C.ER 14:16
DX: E11.65 Type 2 diabetes mellitus with hyperglycemia (principal); Z79.4 Long term (current) use of insulin
CPT/HCPCS: 71045; 80053; 81001; 82948; 83036; 85025; 93005; 96361; 96374; 99284; J7030